=== PATIENT | male | born 1960 | race Caucasian/White ===

== ENCOUNTER 2017-05-26 18:06 | Emergency (ER) | payer MEDICARE ==
[~2017-05-26] VITALS: Ht 177.8 cm; Wt 60.9 kg
[~2017-05-26 18:06] MED LIST: ASPI-146 PO; LEVO.1 PO; MEDR4TAB PO; PERC10TA27 PO; PLAV75TA29 PO
[2017-05-26 18:25] VITALS: BP 94/52; PULSE 98; RESP 20; TEMP 99; O2SAT 95
--- NOTE | 2017-05-26 19:08 | RADRPT ---
EXAM DATE/TIME: 05/26/2017 18:47 [facility] COMPARISON: No previous studies available for comparison. INDICATIONS : Fever. Short of breath. MEDICAL HISTORY : Stroke. Rheumatoid arthritis. Hypothyroidism. COPD. Throat cancer. SURGICAL HISTORY : Carotid endarterectomy. Right carotid stent on 10/24/15. Bilateral cataract surgery. Loop recorder. ENCOUNTER: Initial ACUITY: 2 days PAIN SCORE: 0/10 LOCATION: Bilateral chest FINDINGS: No focal airspace consolidation or effusion. Heart size normal. Remote healed fractures right clavicl e, right ribs. Loop recorder present. CONCLUSION: 1. No acute findings. Dylan Magdaleno MD on May 26, 2017 at 19:04 Board Certified Radiologist. This report was verified electronically.
--- NOTE | 2017-05-27 13:15 | PD ---
Physical Exam Date Seen by Provider: May 26, 2017 Time Seen by Provider: 20:53 Narrative 57 year old male presents to the emergency department for evaluation of fever up to 103 today. He reports having fever for the past 2 days. He reports decreased appetite and vomiting. He denies any chest pain or abdominal pain. Moderate severity. Data Data Last Documented VS Vital Signs Date Time Temp Pulse Resp B/P (MAP) Pulse Ox O2 Delivery O2 Flow Rate FiO2 05/26/17 18:25 99.0 98 20 94/52 (66) 95 Orders Orders Chest, Pa & Lat (05/26/17 ) MDM Supervised Visit with NANCY: No Narrative Course 57 year old male presents to the emergency department for evaluation of fever for 2 days. Patient is initially seen in triage. Work up is initiated. Patient left AMA before he could be moved to a medical bed. Diagnosis Primary Impression: Left against medical advice Patient Instructions: General Instructions Departure Forms: Tests/Procedures Disposition: 07 AGAINST MEDICAL ADVICE Neris Castillo May 27, 2017 13:15
== END 2017-05-26 20:54 | disposition left against medical advice (07) ==
LOC: NED 18:06
DX: R50.9 Fever, unspecified (principal); Z53.21 Procedure and treatment not carried out due to patient leaving prior to being seen by health care provider; J44.9 Chronic obstructive pulmonary disease, unspecified; E03.9 Hypothyroidism, unspecified; M06.9 Rheumatoid arthritis, unspecified
CPT/HCPCS: 71046; 99281; 99283

== ENCOUNTER 2017-06-02 13:47 | Inpatient (IN) | payer MEDICARE ==
[~2017-06-02] VITALS: Ht 177.8 cm; Wt 62.0 kg
[2017-06-02 13:54] VITALS: BP 110/68; PULSE 87; RESP 18; TEMP 99.2; O2SAT 99
[2017-06-02] MEDS ORDERED: SODIUM CHLORIDE 0.9% FLUSH 10 ML FLUSH IVF PRN (14:00)
[2017-06-02] MEDS ORDERED: LORazepam 2 MG/ML VIAL IV PUSH ONE (14:00)
--- NOTE | 2017-06-02 14:04 | PD ---
HPI . Stroke alert Chief Complaint: Neuro Symptoms/ Deficits Time Seen by Provider: 13:51 Travel History International Travel<30 days: No Contact w/Intl Traveler<30days: No Traveled to known affect area: No History of Present Illness HPI This patient presented to us by [facility] as a stroke alert. He was working I believe that the [employer] when he had the acute onset of left-sided weakness. [facility] was called and he was brought to the hospital for further evaluation. Onset of symptoms was 1 PM. It is now 2 PM. The patient denied any associated headache or nausea. He does state that he had blurred vision. The patient is unaware of any exacerbating or relieving factors. Symptoms are mild. PFSH Past Medical History Hx Anticoagulant Therapy: Yes Arthritis: Yes (RHEUMATOID) Asthma: No Autoimmune Disease: Yes (RA) Blood Disorders: No Anxiety: No Depression: No Heart Rhythm Problems: No Cancer: Yes (Thyroid) Cardiovascular Problems: No High Cholesterol: No Chemotherapy: No Chest Pain: No Congestive Heart Failure: No COPD: Yes Cerebrovascular Accident: Yes Diabetes: No Diminished Hearing: No Endocrine: Yes (Thyroid CA) Gastrointestinal Disorders: No GERD: No Glaucoma: No Genitourinary: No Headaches: No Hepatitis: No Hiatal Hernia: No Hypertension: No Immune Disorder: No Kidney Stones: No Musculoskeletal: Yes (RA) Neurologic: Yes (CVA JULY 2015) Psychiatric: No Reproductive: No Respiratory: Yes (COPD) Immunizations Current: No Migraines: No Myocardial Infarction: No Radiation Therapy: No Renal Failure: No Seizures: No Sickle Cell Disease: No Sleep Apnea: No Thyroid Disease: Yes Ulcer: No Past Surgical History Abdominal Surgery: No AICD: No Appendectomy: No Arteriovenous Shunt: No Cardiac Surgery: Yes (current stay carotid stent ) Cholecystectomy: No Ear Surgery: No Endocrine Surgery: Yes (Thyroid) Eye Surgery: Yes (Left and right cataracts) Genitourinary Surgery: No Gynecologic Surgery: No Insulin Pump: No Joint Replacement: No Neurologic Surgery: No Oral Surgery: Yes (tooth removal) Pacemaker: No Thoracic Surgery: No Other Surgery: Yes Social History Alcohol Use: Yes (DAILY) Tobacco Use: No (QUIT) Substance Use: No Allergies-Medications (Allergen,Severity, Reaction): Coded Allergies: Sulfa (Sulfonamide Antibiotics) (Unverified Allergy, Severe, "SKIN PROBLEM ", 06/02/17) *MDRO Multi-Drug Resistant Organism (Verified Adverse Reaction, Unknown, ) MRSA (wound & cath tip) - 2009 MRSA PCR Screens NEGATIVE - 08/07 & 08/10/2015 CLEARED BY INFECTION CONTROL Reported Meds & Prescriptions Reported Meds & Active Scripts Active No Active Prescriptions or Reported Medications Review of Systems Except as stated in HPI: all other systems reviewed are Neg General / Constitutional: No: Fever, Chills Eyes: Positive: Blurred Vision, No: Diploplia HENT: No: Headaches Cardiovascular: No: Chest Pain or Discomfort Respiratory: No: Shortness of Breath Gastrointestinal: No: Nausea, Vomiting Neurologic: Positive: Weakness, Focal Abnormalities, Tremor, Paresthesia, No: Headache, Change in Mentation, Slurred Speech Physical Exam Narrative GENERAL: The patient is very tremulous and is hyperventilating. SKIN: warm/dry. HEAD: Normocephalic. Atraumatic. EYES: Pupils equal and round. No scleral icterus. No injection or drainage. ENT: No nasal bleeding or discharge. Mucous membranes pink and moist. NECK: Trachea midline. Full range of motion without pain.. CARDIOVASCULAR: Regular rate and rhythm. RESPIRATORY: No accessory muscle use. Clear to auscultation. Breath sounds equal bilaterally. GASTROINTESTINAL: Abdomen soft. Nontender. Bowel sounds present. Nondistended. MUSCULOSKELETAL: No obvious deformities. NEUROLOGICAL: A and O 3. Wrinkling of his forehead, closing his eyes, smiling and protruding his tongue are symmetrical. No cranial nerve weakness noted. 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 Pronator drift is negative. Babinski is negative. He is able to hold both legs up off the stretcher equally. PSYCHIATRIC: Appropriate mood and affect; insight and judgment normal. Data Data Last Documented VS Vital Signs Date Time Temp Pulse Resp B/P (MAP) Pulse Ox O2 Delivery O2 Flow Rate FiO2 06/02/17 13:57 (82) Room Air 21 06/02/17 13:54 99.2 87 18 99 Orders Orders Electrocardiogram (06/02/17 13:51) Prothrombin Time / Inr (Pt) (06/02/17 13:51) Act Partial Throm Time (Ptt) (06/02/17 13:51) Complete Blood Count With Diff (06/02/17 13:51) Comprehensive Metabolic Panel (06/02/17 13:51) Drug Screen, Random Urine (06/02/17 13:51) Troponin I (06/02/17 13:51) Ct Brain W/O Iv Contrast(Rout) (06/02/17 13:51) Ecg Monitoring (06/02/17 13:51) Iv Access Insert/Monitor (06/02/17 13:51) Oximetry (06/02/17 13:51) Sodium Chloride 0.9% Flush (Ns Flush) (06/02/17 14:00) Lorazepam Inj (Ativan Inj) (06/02/17 14:00) Alcohol (Ethanol) (06/02/17 13:51) Admit Order (Ed Use Only) (06/02/17 ) [employer] Sales Representative / Telemetry TOPHER.Q8H (06/02/17 15:28) Vital Signs (Adult) Q4H (06/02/17 15:28) Diet Heart Healthy (06/02/17 Dinner) Labs Laboratory Tests Test 06/02/17 14:00 White Blood Count 8.6 TH/MM3 Red Blood Count 5.14 MIL/MM3 Hemoglobin 16.8 GM/DL Hematocrit 48.4 % Mean Corpuscular Volume 94.1 FL Mean Corpuscular Hemoglobin 32.7 PG Mean Corpuscular Hemoglobin Concent 34.8 % Red Cell Distribution Width 14.0 % Platelet Count 368 TH/MM3 Mean Platelet Volume 7.7 FL Neutrophils (%) (Auto) 83.8 % Lymphocytes (%) (Auto) 10.1 % Monocytes (%) (Auto) 5.0 % Eosinophils (%) (Auto) 0.5 % Basophils (%) (Auto) 0.6 % Neutrophils # (Auto) 7.2 TH/MM3 Lymphocytes # (Auto) 0.9 TH/MM3 Monocytes # (Auto) 0.4 TH/MM3 Eosinophils # (Auto) 0.0 TH/MM3 Basophils # (Auto) 0.1 TH/MM3 CBC Comment DIFF FINAL Differential Comment Prothrombin Time 10.2 SEC Prothromb Time International Ratio 1.0 RATIO Activated Partial Thromboplast Time 23.8 SEC Blood Urea Nitrogen 9 MG/DL Creatinine 0.95 MG/DL Random Glucose 88 MG/DL Total Protein 7.1 GM/DL Albumin 3.1 GM/DL Calcium Level 9.1 MG/DL Alkaline Phosphatase 87 U/L Aspartate Amino Transf (AST/SGOT) 23 U/L Alanine Aminotransferase (ALT/SGPT) 40 U/L Total Bilirubin 0.4 MG/DL Sodium Level 139 MEQ/L Potassium Level 4.9 MEQ/L Chloride Level 105 MEQ/L Carbon Dioxide Level 24.7 MEQ/L Anion Gap 9 MEQ/L Estimat Glomerular Filtration Rate 82 ML/MIN Troponin I LESS THAN 0.02 NG/ML Ethyl Alcohol Level LESS THAN 3 MG/DL MDM Medical Screen Exam Complete: Yes Emergency Medical Condition: Yes Medical Record Reviewed: Yes (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 This was treated about 8 years ago with chemotherapy and radiation therapy. Since that time, he has been cancer free. He does continue to smoke.) Differential Diagnosis Differential diagnosis includes but is not limited to TIA, CVA, brain tumor, migraine, anxiety Narrative Course This patient presented to us as a stroke alert. I got an initial NIH stroke score of 0. Perhaps he had a TIA and his symptoms had resolved prior to presentation. Stroke workup is in process. CT: 1. Stable senescent changes with stable posterior right MCA territory infarct. 2. No acute intracranial abnormality. CBC & BMP Diagram 06/02/17 14:00 Total Protein 7.1, Albumin 3.1 L, Calcium Level 9.1, Alkaline Phosphatase 87, Aspartate Amino Transf (AST/SGOT) 23, Alanine Aminotransferase (ALT/SGPT) 40, Total Bilirubin 0.4 trop < 0.02 Stroke Alert NIHSS NIH Stroke Scale Result: 0 NIHSS Time Completed: 13:47 Procedures Interpretation(s) EKG shows a sinus rhythm with no acute ischemic changes Physician Communication Physician Communication Dr. Fernandez Diagnosis Diagnosis: Primary Impression: Left-sided weakness Admitting Physician Requests: Observation Scripts No Active Prescriptions or Reported Meds Condition: Stable Yanet Bocanegra MD Jun 02, 2017 14:03
[2017-06-02 14:14] LABS: AUTOMATED NEUTROPHIL # 7.2 TH/MM3 (1.8-7.7); BASOPHIL # 0.1 TH/MM3 (0-0.2); BASOPHIL % 0.6 % (0.0-2.0); EOSINOPHIL % 0.5 % (0.0-4.0); HEMATOCRIT 48.4 % (39.0-51.0); HEMOGLOBIN 16.8 GM/DL (13.0-17.0); LYMPH % 10.1 % (9.0-44.0); LYMPHOCYTE # 0.9 TH/MM3 (1.0-4.8); MEAN CELL VOLUME 94.1 FL (80.0-100.0); MEAN CORPUSCULAR HEMOGLOBIN 32.7 PG (27.0-34.0); MEAN CORPUSCULAR HGB CONC 34.8 % (32.0-36.0); MEAN PLATELET VOLUME 7.7 FL (7.0-11.0); MONOCYTE # 0.4 TH/MM3 (0-0.9); NEUT % 83.8 % (16.0-70.0); PLATELET COUNT 368 TH/MM3 (150-450); RED BLOOD COUNT 5.14 MIL/MM3 (4.50-5.90); WHITE BLOOD COUNT 8.6 TH/MM3 (4.0-11.0)
[2017-06-02 14:22] LABS: PROTHROMBIN TIME - PATIENT 10.2 SEC (9.8-11.6)
[2017-06-02 14:29] LABS: ALBUMIN 3.1 GM/DL (3.4-5.0); ALT (GPT) 40 U/L (12-78); AST (GOT) 23 U/L (15-37); BICARBONATE 24.7 MEQ/L (21.0-32.0); BLOOD UREA NITROGEN 9 MG/DL (7-18); CALCIUM 9.1 MG/DL (8.5-10.1); CHLORIDE 105 MEQ/L (98-107); CREATININE 0.95 MG/DL (0.60-1.30); GLOMERULAR FILTRATION RATE 82 ML/MIN (>89); GLUCOSE,RANDOM 88 MG/DL (74-106); SODIUM (NA) 139 MEQ/L (136-145)
[2017-06-02 14:33] LABS: ALKALINE PHOSPHATASE 87 U/L (45-117); TOTAL BILIRUBIN ADULT 0.4 MG/DL (0.2-1.0); TOTAL PROTEIN 7.1 GM/DL (6.4-8.2); TROPONIN I LESS THAN 0.02 NG/ML (0.02-0.05)
--- NOTE | 2017-06-02 14:59 | RADRPT ---
EXAM DATE/TIME: 06/02/2017 14:36 [facility] COMPARISON: CT BRAIN W/O CONTRAST, August 08, 2015, 22:40. INDICATIONS : Left side weakness RADIATION DOSE: 35.64 CTDIvol (mGy) MEDICAL HISTORY : Cerebrovascular disease. Chronic obstructive pulmonary disease. Arthritis.Thyroid cancer SURGICAL HISTORY : Thyroid cancer ENCOUNTER: Initial ACUITY: 1 day PAIN SCALE: 0/10 LOCATION: cranial TECHNIQUE: Multiple contiguous axial images were obtained of the head. Using automated exposure control and adj ustment of the mA and/or kV according to patient size, radiation dose was kept as low as reasonably a chievable to obtain optimal diagnostic quality images. DICOM format image data is available electro nically for review and comparison. FINDINGS: CEREBRUM: Redemonstration of encephalomalacia in the right posterior parietal mid convexities. Moderate diffuse cerebral atrophy. The ventricles are normal for degree of atrophy. No evidence of midline shift, ma ss lesion, hemorrhage or acute infarction. No extra-axial fluid collections are seen. POSTERIOR FOSSA: The cerebellum and brainstem are intact. The 4th ventricle is midline. The cerebellopontine angle i s unremarkable. EXTRACRANIAL: The visualized portion of the orbits is intact. SKULL: The calvaria is intact. No evidence of skull fracture. CONCLUSION: 1. Stable senescent changes with stable posterior right MCA territory infarct. 2. No acute intracranial abnormality. Ezio Mora MD on June 02, 2017 at 14:54 Board Certified Radiologist. This report was verified electronically.
[2017-06-02] MEDS ORDERED: GLUCAGON 1 MG/ML VIAL OTHER PRN ×2 (15:30→20:15)
[2017-06-02] MEDS ORDERED: DEXTROSE 50% IN WATER 50 ML VIAL(D50) IV PUSH PRN ×2 (15:30→20:15)
[2017-06-02] MEDS ORDERED: SODIUM CHLORIDE 0.9% FLUSH 10 ML FLUSH IV FLUSH PRN ×2 (15:30→20:15)
--- NOTE | 2017-06-02 16:57 | RADRPT ---
EXAM DATE/TIME: 06/02/2017 16:15 [facility] COMPARISON: MRA BRAIN W/O CONTRAST, August 05, 2015, 8:59. INDICATIONS : CVA. Bilateral hand weakness and left foot weakness. MEDICAL HISTORY : Rheumatoid arthritis. Throat cancer. SURGICAL HISTORY : Carotid stent. Medtronic loop recoder. ENCOUNTER: Initial ACUITY: 1 day PAIN SCORE: 4/10 LOCATION: Bilateral cranial Please note a normal MRA of the brain does not entirely exclude the possibility of a small aneurysm, nor the possibility of distal intracranial vessel disease. TECHNIQUE: 3D time of flight MRA was performed. Source images, multiplanar STS MIP, and 3D volume MIP reconstru ctions were reviewed. FINDINGS: There is excellent visualization of the major intracranial arteries out to the second-order branch ve ssels. There is no evidence for aneurysm, vessel truncation or stenosis, and no evidence for vascula r malformation. Patent posterior communicating arteries are noted bilaterally. CONCLUSION: No acute disease. Patent bilateral posterior communicating arteries. Jeffery sDouza MD on June 02, 2017 at 16:53 Board Certified Radiologist. This report was verified electronically.
--- NOTE | 2017-06-02 17:03 | RADRPT ---
EXAM DATE/TIME: 06/02/2017 16:15 [facility] COMPARISON: MRI BRAIN W/O CONTRAST, August 09, 2015, 11:13. INDICATIONS : CVA. Bilateral hand weakness and left foot weakness. MEDICAL HISTORY : Rheumatoid arthritis. Throat cancer. SURGICAL HISTORY : Carotid stent. Medtronic loop recorder. ENCOUNTER: Initial ACUITY: 1 day PAIN SCORE: 4/10 LOCATION: Bilateral cranial TECHNIQUE: Multiplanar, multisequence MRI of the brain was performed without contrast. FINDINGS: There is a tiny focus of hyperdensity within the right parietal periventricular white matter on the d iffusion weighted images suggestive of possible acute/subacute lacunar infarct. Clinical correlation is recommended. Old right MCA infarct with encephalomalacia involving right parietal and temporal lob es is noted. No acute hemorrhage, midline shift or extra-axial fluid collections are noted. There is an old lacunar infarct within the left cerebellar hemisphere. The ventricles, sulci and cisterns are stable. CONCLUSION: Tiny focus of hyperdensity within the right parietal periventricular white matter on the diffusion we ighted images suggestive of possible acute/subacute lacunar infarct. Clinical correlation is recommen ded. Jeffery Dsouza MD on June 02, 2017 at 16:55 Board Certified Radiologist. This report was verified electronically.
[2017-06-02 17:04] VITALS: BP 86/61; PULSE 63; RESP 18; TEMP 96.9; O2SAT 98
[2017-06-02 17:07] VITALS: BP 98/62
--- NOTE | 2017-06-02 18:06 | RADRPT ---
EXAM DATE/TIME: 06/02/2017 17:03 [facility] COMPARISON: US CAROTID ARTERIES, December 07, 2015, 15:03. INDICATIONS : Transient ischemic attack. MEDICAL HISTORY : Stroke. Rheumatoid arthritis. Carcinoma, thyroid. Thyroid disease. Anticoagulant therapy. COPD. SURGICAL HISTORY : Carotid endarterectomy. Thyroidectomy. Bilateral cataract surgery. Left collarbone surgery. ENCOUNTER: Subsequent ACUITY: 1 day PAIN SCORE: 0/10 LOCATION: Bilateral neck PEAK SYSTOLIC VELOCITIES (cm/sec): ICA/CCA RATIO: Right: 1.4 Left: 1.7 ICA: Right: 95.1 Left: 137.7 CCA: Right: 65.9 Left: 82.7 ECA: Right: UTO Left: UTO VERTEBRAL: Right: 70.9 antegrade Left: 54.8 retrograde Elevated flow velocities and ICA/CCA ratios have been found to correlate with increased degrees of vessel stenosis, calculated as percentage of diameter relative to a normal segment of distal ICA/CCA FINDINGS: RIGHT CAROTID: Carotid stent is again noted. No significant stenosis is visualized. The waveforms are within normal limits. LEFT CAROTID: Carotid stent is again noted. No significant stenosis is visualized. The waveforms are within normal limits. VERTEBRAL ARTERIES: Again there is retrograde flow within the left vertebral artery suggesting possible subclavian steal syndrome related to proximal high-grade stenosis of the left subclavian artery. Antegrade flow is not ed within the right vertebral artery. MISCELLANEOUS: None. CONCLUSION: 1. Retrograde flow within the left vertebral artery suggesting possible subclavian steal syndrome rel ated to proximal high-grade stenosis of the left subclavian artery. 2. No significant internal carotid artery stenosis. Jeffery Dsouza MD on June 02, 2017 at 18:00 Board Certified Radiologist. This report was verified electronically.
--- NOTE | 2017-06-02 19:30 | HHI.HP ---
HPI Service [facility] Primary Care Physician Unknown Admission Diagnosis TIA Diagnoses: Travel History International Travel<30 Days: No Contact w/Intl Traveler <30 Da: No Traveled to Known Affected Are: No History of Present Illness was feeling numb on his whole left side while he was working at [employer] [facility] was called right away got to er within 15min per patient reports symptoms were "pretty much under control" by the time he got here ER MD reports symptoms were improving as well brought in as stroke alert by ems was on blood thinners a year ago he states he stopped it himself because he thinks it was not doing anything for him thinks it was plavix he sees dr quevedo and last time he saw him he was given plavix prescription again, but did not fill it because he cant afford it have had shortness of breath at night time when he gets up to urinate- and usually goes away when gets back to bed chronic smoker- copd hx Review of Systems Except as stated in HPI: all other systems reviewed are Neg Past Family Social History Past Medical History copd pad- s/p bilateral cartoid artery stents CVA in 2016-no residual weakness squamous cell Cancer of left tonsil 2008- s/p chemo radiation hypothyroidism due to cancer treatment above - 100mcg rheumatoid arthritis- takes methotrexate and medrol Past Surgical History carotid artery stents Reported Medications medrol 6 mg po daily methotrexate 15mg on Fridays synthroid 100mcg po daily water pill used to have cholesterol medicine- but that was not doing any good blood thinners- asa, plavix- not doing good- so stopped it himself pharmacy in [facility] Allergies: Coded Allergies: Sulfa (Sulfonamide Antibiotics) (Unverified Allergy, Severe, "SKIN PROBLEM ", 06/02/17) *MDRO Multi-Drug Resistant Organism (Verified Adverse Reaction, Unknown, ) MRSA (wound & cath tip) - 2009 MRSA PCR Screens NEGATIVE - 08/07 & 08/10/2015 CLEARED BY INFECTION CONTROL Family History none that he knows of Social History smokes about 1 pack a day now , for past >30yrs drinks etoh about 6 packs a day - last drink was yesterday no drugs just occasional marijuana Physical Exam Vital Signs Vital Signs Date Time Temp Pulse Resp B/P (MAP) Pulse Ox O2 Delivery O2 Flow Rate FiO2 06/02/17 17:07 98/62 (74) 06/02/17 17:04 96.9 63 18 86/61 (69) 98 06/02/17 16:22 (82) 21 06/02/17 13:57 (82) Room Air 21 06/02/17 13:54 99.2 87 18 110/68 (82) 99 Room Air 21 06/02/17 13:52 88 Physical Exam GENERAL: This is a well-nourished, well-developed patient, in no apparent distress. SKIN: No rashes, ecchymoses or lesions. Cool and dry. HEAD: Atraumatic. Normocephalic. No temporal or scalp tenderness. EYES: Pupils equal round and reactive. Extraocular motions intact. No scleral icterus. No injection or drainage. ENT: Nose without bleeding, purulent drainage or septal hematoma. Airway patent. NECK: Trachea midline. No JVD . Supple, nontender, no meningeal signs. CARDIOVASCULAR: Regular rate and rhythm without murmurs, gallops, or rubs. RESPIRATORY: Clear to auscultation. Breath sounds equal bilaterally. No wheezes , rales, or rhonchi. GASTROINTESTINAL: Abdomen soft, non-tender, nondistended. No guarding. MUSCULOSKELETAL: Extremities without clubbing, cyanosis, or edema. No calf tenderness. NEUROLOGICAL: Awake and alert. Cranial nerves II through XII intact. Five out of 5 muscle strength in all muscle groups. Normal speech. Laboratory Laboratory Tests Test 06/02/17 14:00 White Blood Count 8.6 Red Blood Count 5.14 Hemoglobin 16.8 Hematocrit 48.4 Mean Corpuscular Volume 94.1 Mean Corpuscular Hemoglobin 32.7 Mean Corpuscular Hemoglobin Concent 34.8 Red Cell Distribution Width 14.0 Platelet Count 368 Mean Platelet Volume 7.7 Neutrophils (%) (Auto) 83.8 Lymphocytes (%) (Auto) 10.1 Monocytes (%) (Auto) 5.0 Eosinophils (%) (Auto) 0.5 Basophils (%) (Auto) 0.6 Neutrophils # (Auto) 7.2 Lymphocytes # (Auto) 0.9 Monocytes # (Auto) 0.4 Eosinophils # (Auto) 0.0 Basophils # (Auto) 0.1 CBC Comment DIFF FINAL Differential Comment Prothrombin Time 10.2 Prothromb Time International Ratio 1.0 Activated Partial Thromboplast Time 23.8 Blood Urea Nitrogen 9 Creatinine 0.95 Random Glucose 88 Total Protein 7.1 Albumin 3.1 Calcium Level 9.1 Alkaline Phosphatase 87 Aspartate Amino Transf (AST/SGOT) 23 Alanine Aminotransferase (ALT/SGPT) 40 Total Bilirubin 0.4 Sodium Level 139 Potassium Level 4.9 Chloride Level 105 Carbon Dioxide Level 24.7 Anion Gap 9 Estimat Glomerular Filtration Rate 82 Hemoglobin A1c 5.0 Troponin I LESS THAN 0.02 Ethyl Alcohol Level LESS THAN 3 Result Diagram: 06/02/17 1400 06/02/17 1400 Es VTE Risk Assessment Es VTE Risk Assessment: Mod/High Risk (score >= 2) Caprini Risk Assessment Model Point Value = 1 Point Value = 2 Point Value = 3 Point Value = 5 Age 41-60 Minor surgery BMI > 25 kg/m2 Swollen legs Varicose veins or History of unexplained or recurrent spontaneous Oral contraceptives or hormone replacement Sepsis (< 1 month) Serious lung disease, including pneumonia (< 1 month) Abnormal pulmonary function Acute myocardial infarction Congestive heart failure (< 1 month) History of inflammatory bowel disease Medical patient at bed rest Age 61-74 Arthroscopic surgery Major open surgery (> 45 min) Laparoscopic surgery (> 45 min) Malignancy Confined to bed (> 72 hours) Immobilizing plaster cast Central venous access Age >= 75 History of VTE Family history of VTE Factor V Leiden Prothrombin [id number] Lupus anticoagulant Anticardiolipin antibodies Elevated serum homocysteine Heparin-induced thrombocytopenia Other congenital or acquired thrombophilia Stroke (< 1 month) Elective arthroplasty Hip, pelvis, or leg fracture Acute spinal cord injury (< 1 month) Prophylaxis Regimen Total Risk Factor Score Risk Level Prophylaxis Regimen 0-1 Low Early ambulation 2 Moderate Order ONE of the following: *Sequential Compression Device (SCD) *Heparin 5000 units SQ BID 3-4 Higher Order ONE of the following medications: *Heparin 5000 units SQ TID *Enoxaparin/Lovenox 40 mg SQ daily (WT < 150 kg, CrCl > 30 mL/min) *Enoxaparin/Lovenox 30 mg SQ daily (WT < 150 kg, CrCl > 10-29 mL/min) *Enoxaparin/Lovenox 30 mg SQ BID (WT < 150 kg, CrCl > 30 mL/min) AND/OR *Sequential Compression Device (SCD) 5 or more Highest Order ONE of the following medications: *Heparin 5000 units SQ TID (Preferred with Epidurals) *Enoxaparin/Lovenox 40 mg SQ daily (WT < 150 kg, CrCl > 30 mL/min) *Enoxaparin/Lovenox 30 mg SQ daily (WT < 150 kg, CrCl > 10-29 mL/min) *Enoxaparin/Lovenox 30 mg SQ BID (WT < 150 kg, CrCl > 30 mL/min) AND *Sequential Compression Device (SCD) Assessment and Plan Assessment and Plan Impression: tia medications non compliance - not taking asa/plavix/folic acid rheumatoid arthritis on mtx at home- not taking folic acid- sees DR Baker on lazara mirza and kasandra flores- wireless sales expert copd Plan: neurochecks permissive htn asa and plavix mri of brain and mra neuro consult carotid US echo ciwa dvt prophylaxis scd Discussed Condition With patient, ER MD, nursing staff Bonita Fernandez MD Jun 02, 2017 19:30
[2017-06-02] MEDS ORDERED: LORazepam 2 MG TAB PO PRN (19:45)
[2017-06-02] MEDS ORDERED: FLUMAZENIL 0.5 MG/5 ML VIAL IV PUSH PRN (19:45)
[2017-06-02] MEDS ORDERED: LORazepam 1 MG TAB PO PRN (19:45)
[2017-06-02] MEDS ORDERED: LORazepam 2 MG/ML VIAL IV PUSH PRN ×4 (19:45)
[2017-06-02] MEDS ORDERED: MEDR4PAK PO ×2 (19:51→19:58)
[2017-06-02] MEDS ORDERED: LEVO.1 PO (19:51)
[2017-06-02] MEDS ORDERED: PERC10TA27 PO (19:51)
[2017-06-02] MEDS ORDERED: CLOPIDOGREL 75 MG TAB PO ONE (20:00)
[2017-06-02] MEDS ORDERED: ASPIRIN 81 MG CHEW TAB CHEW ONE (20:00)
--- NOTE | 2017-06-02 20:15 | EKG ---
Date Performed: 06/02/2017 Time Performed: 14:00:19 PTAGE: 57 years EKG: Sinus rhythm NORMAL ECG No significant change from prior electrocardiogram. DOCTOR: All Elias Interpretating Date/Time 06/02/2017 20:13:58
[2017-06-02 20:33] VITALS: BP 109/56; PULSE 78; RESP 18; TEMP 98.7; O2SAT 96
[2017-06-02 20:46] VITALS: PULSE 72
[2017-06-02] MEDS: SODIUM CHLORIDE 0.9% FLUSH 10 ML FLUSH IV FLUSH SCH ×2 (21:00→21:28)
[2017-06-02] MEDS: ASPIRIN 325 MG TAB PO SCH (21:27)
[2017-06-02] MEDS: CLOPIDOGREL 75 MG TAB PO SCH (21:28)
[2017-06-02] MEDS: SODIUM CHLOR 0.9% 1000 ML INJ 1,000 ML IV SCH (21:30)
[2017-06-02] MEDS: INSULIN ASPART SUPPLEMENTAL SCALE SQ SCH (21:38)
[2017-06-03] VITALS (12 sets, daily range): BP systolic 102–130; BP diastolic 57–64; PULSE 52–66; RESP 18–22; TEMP 97.4–97.9; O2SAT 94–100
[2017-06-03 07:01] LABS: CHOLESTEROL/ HDL RATIO 3.03 RATIO; HDL CHOLESTEROL 40.9 MG/DL (40.0-60.0)
[2017-06-03] MEDS: INSULIN ASPART SUPPLEMENTAL SCALE SQ SCH ×4 (08:00→21:45)
--- NOTE | 2017-06-03 08:19 | MB ---
cc: Tai Melendez MD, PhD DATE: 06/02/2017 REASON FOR CONSULTATION: Stroke. HISTORY OF PRESENT ILLNESS: Mr. Barrientos is a very pleasant 57-year-old man who developed around 01:00 today sudden onset of weakness, clumsiness of the left arm with numbness, also numbness in the left leg and left face. Speech was normal. He came to the ER initially as a Stroke-Alert, but his symptoms basically resolved and, therefore, he was felt not to be an acute Stroke-Alert. He feels basically back to normal at the present time. PAST MEDICAL HISTORY: He has a history of stroke in 2016, with no residual symptoms, history of bilateral carotid stents, hypothyroidism, rheumatic arthritis. MEDICATIONS: He was supposed to be on Plavix at home, but has not been taking it, states that his insurance did not cover this. NEUROLOGICAL PHYSICAL EXAMINATION: VITAL SIGNS: Blood pressure is 98/62, pulse 63, respirations 18, temperature 96.9 degrees. NEUROLOGIC: Higher cortical functions are normal. Cranial nerves intact. Motor exam, he has normal strength and tone of all groups. Fine motor skills normal. There is no drift. Reflexes are 2+ symmetric. IMAGING: MRI of the brain shows a very small hyperdensity in the right parietal area, consistent with acute stroke. MRA brain is normal. Carotid ultrasound, retrograde flow in the left vertebral suggesting subclavian steal related to proximal high grade stenosis of the left subclavian artery. LABORATORY DATA: The white count 8600, hemoglobin 16.8, hematocrit 48.4%, platelet count 368,000. Sodium is 139, potassium 4.9, chloride 105, CO2 25, BUN is 9, creatinine 0.95, GFR is 82, glucose 88, AST 23, ALT is 40. Tox screen, alcohol is negative. PT 10.2, INR 1, APTT 23.8. ECHOCARDIOGRAM: The EKG, normal sinus rhythm. IMPRESSION: A small right hemisphere stroke, which improved spontaneously, history of bilateral carotid stents, possible subclavian steal phenomenon as well. RECOMMENDATIONS: Recommend starting the patient on both Plavix as well as aspirin therapy. We will obtain a CT angiogram of the neck to further evaluate the vertebral arteries, as well as the carotids and subclavian artery. Recommend echocardiogram. He may require transesophageal echo. Given his relatively young age, we will check labs for hypercoagulable state as well. Tai Melendez MD, PhD JOANN/DINA , 08:13 PM , 09:06 PM
[2017-06-03] MEDS ORDERED: IOHEXOL 350 MG/ML 10 ML VIAL (for RAD DIAG) IVCONTRAST ONE (08:50)
[2017-06-03] MEDS: ASPIRIN 325 MG TAB PO SCH (08:55)
[2017-06-03] MEDS: CLOPIDOGREL 75 MG TAB PO SCH (08:55)
[2017-06-03] MEDS: FOLIC ACID 1 MG TAB PO SCH (08:55)
[2017-06-03] MEDS: THIAMINE HCL 100 MG TAB PO SCH (08:55)
[2017-06-03] MEDS: SODIUM CHLORIDE 0.9% FLUSH 10 ML FLUSH IV FLUSH SCH ×4 (08:56→21:45)
[2017-06-03] MEDS: SODIUM CHLOR 0.9% 1000 ML INJ 1,000 ML IV SCH (09:05)
[2017-06-03] MEDS ORDERED: oxyCODONE/ACETAMINOPHEN 10 MG/325 MG TAB PO PRN (09:15)
[2017-06-03] MEDS ORDERED: ACETAMINOPHEN 325 MG TAB PO PRN (09:15)
[2017-06-03] MEDS: methylPREDNISolone 4 MG TAB PO SCH (09:15)
[2017-06-03] MEDS: LEVOTHYROXINE SODIUM 100 MCG TAB PO SCH (09:15)
--- NOTE | 2017-06-03 09:23 | RADRPT ---
EXAM DATE/TIME: 06/03/2017 08:42 [facility] COMPARISON: MRI BRAIN W/O CONTRAST, June 02, 2017, 16:15. CTA BRAIN W 3D RECON, August 06, 2015, 13:12. INDICATIONS : Cerebrovascular accident. IV CONTRAST: 65 cc Omnipaque 350 (iohexol) IV ; Cumulative dose for multiple exams. RADIATION DOSE: 9.23 CTDIvol (mGy) ; Combined studies MEDICAL HISTORY : Cerebrovascular disease. Chronic obstructive pulmonary disease. Carcinoma, thyroid. SURGICAL HISTORY : Carotid stent. ENCOUNTER: Initial ACUITY: 2 days PAIN SCALE: 0/10 LOCATION: cranial TECHNIQUE: Volumetric scanning was performed using a multi-row detector CT scanner. The data was post processed with a variety of visualization algorithms including full volume maximum intensity projection, multi -planar sliding thin slab reformation, curved planar reformation, and surface rendering techniques. Using automated exposure control and adjustment of the mA and/or kV according to patient size, radiat ion dose was kept as low as reasonably achievable to obtain optimal diagnostic quality images. DICO M format image data is available electronically for review and comparison. FINDINGS: There is excellent visualization of the major intracranial arteries out to the second-order branch ve ssels. There is no evidence for aneurysm, vessel truncation or stenosis, and no evidence for vascula r malformation. Patent bilateral posterior communicating arteries are noted. CONCLUSION: 1. No significant stenosis, occlusion or aneurysm. 2. Patent bilateral posterior communicating arteries. Jeffery Dsouza MD on June 03, 2017 at 9:17 Board Certified Radiologist. This report was verified electronically.
[2017-06-03] MEDS ORDERED: PILL SPLITTER OTHER PRN (09:30)
--- NOTE | 2017-06-03 09:30 | HHI.PR ---
Subjective Remarks Follow up for CVA. The patient reports feeling back to his baseline. He denies any further left sided numbness or weakness. Denies any speech difficulties. Denies any other medical complaints including no headache, visual changes, lightheadedness, dizziness, chest pain, palpitations, shortness of breath, or abdominal complaints. Objective Vitals Vital Signs Date Time Temp Pulse Resp B/P (MAP) Pulse Ox O2 Delivery O2 Flow Rate FiO2 06/03/17 08:00 97.5 59 22 106/64 (78) 99 06/03/17 04:24 60 06/03/17 03:55 97.9 57 18 110/58 (75) 100 06/03/17 00:33 52 06/03/17 00:13 60 18 130/60 (83) 97 06/02/17 20:46 72 06/02/17 20:33 98.7 78 18 109/56 (73) 96 06/02/17 17:07 98/62 (74) 06/02/17 17:04 96.9 63 18 86/61 (69) 98 06/02/17 16:22 (82) 21 06/02/17 13:57 (82) Room Air 21 06/02/17 13:54 99.2 87 18 110/68 (82) 99 Room Air 21 06/02/17 13:52 88 I/O 06/02/17 06/02/17 06/02/17 06/03/17 06/03/17 06/03/17 07:00 15:00 23:00 07:00 15:00 23:00 # Voids 1 Result Diagram: 06/02/17 1400 06/02/17 1400 Imaging Last Impressions Head CT 06/02/17 1351 Signed Impressions: Service Date/Time: Friday, June 02, 2017 14:36 - CONCLUSION: 1. Stable senescent changes with stable posterior right MCA territory infarct. 2. No acute intracranial abnormality. Ezio Mora MD Neck CTA 06/02/17 0000 Signed Impressions: Service Date/Time: Saturday, June 03, 2017 08:42 - CONCLUSION: 1. Occluded left subclavian origin with vertebral reconstitution. 2. Interval bilateral carotid artery stent placement. Eccentric soft plaque/mural thrombus extends from the distal common carotid arteries to the proximal portion of the stents bilaterally. There is resultant 20-30%% stenosis on the right and less than 20% % stenosis on the left. 3. Mild to moderate distal IntraStent stenosis bilaterally. There is up to 30-40%% stenosis on the right and nearly 30%% stenosis on the left. 4. Widely patent bilateral vertebral arteries. Ezio Mora MD Head Magnetic Resonance Angiography 06/02/17 0000 Signed Impressions: Service Date/Time: Friday, June 02, 2017 16:15 - CONCLUSION: No acute disease. Patent bilateral posterior communicating arteries. Jeffery Dsouza MD Head CTA 06/02/17 0000 Signed Impressions: Service Date/Time: Saturday, June 03, 2017 08:42 - CONCLUSION: 1. No significant stenosis, occlusion or aneurysm. 2. Patent bilateral posterior communicating arteries. Jeffery Dsouza MD Carotid Artery Ultrasound 06/02/17 0000 Signed Impressions: Service Date/Time: Friday, June 02, 2017 17:03 - CONCLUSION: 1. Retrograde flow within the left vertebral artery suggesting possible subclavian steal syndrome related to proximal high-grade stenosis of the left subclavian artery. 2. No significant internal carotid artery stenosis. Jeffery Dsouza MD Brain MRI 06/02/17 0000 Signed Impressions: Service Date/Time: Friday, June 02, 2017 16:15 - CONCLUSION: Tiny focus of hyperdensity within the right parietal periventricular white matter on the diffusion weighted images suggestive of possible acute/subacute lacunar infarct. Clinical correlation is recommended. Jeffery Dsouza MD Objective Remarks GENERAL: Thin middle-aged male patient in [facility]. SKIN: Warm and dry. No rash. HEENT: Normocephalic. Atraumatic. Mild bitemporal wasting. Pupils equal and round. Mucous membranes pink and moist. NECK: Supple. Trachea midline. CARDIOVASCULAR: Regular rate and rhythm. No murmur appreciated. RESPIRATORY: No accessory muscle use. Clear to auscultation. Breath sounds equal bilaterally. GASTROINTESTINAL: Abdomen soft, non-tender, nondistended. Normoactive bowel sounds x4. MUSCULOSKELETAL: No obvious deformities. Extremities without clubbing, cyanosis , or edema. NEUROLOGICAL: Awake and alert. No obvious cranial nerve deficits. Motor grossly within normal limits. 5/5 muscle strength in bilateral upper and lower extremities. Normal speech. No facial droop/lid lag/tongue deviation. PSYCHIATRIC: Appropriate mood and affect; insight and judgment normal. Medications and IVs Current Medications Medications (Trade) Dose Ordered Sig/Tu Route Start Time Stop Time Status Last Admin (NS Flush) 2 ml BID IV FLUSH 06/02/17 21:00 06/03/17 08:56 (NS Flush) 2 ml UNSCH PRN IV FLUSH 06/02/17 15:30 (Folate) 1 mg DAILY PO 06/03/17 09:00 06/03/17 08:55 (Vitamin B1) 100 mg DAILY PO 06/03/17 09:00 06/03/17 08:55 (Romazicon Inj) 0.2 mg Q1M PRN IV PUSH 06/02/17 19:45 (Ativan) 1 mg Q4H PRN PO 06/02/17 19:45 (Ativan Inj) 1 mg Q4H PRN IV PUSH 06/02/17 19:45 (Ativan) 2 mg Q2H PRN PO 06/02/17 19:45 (Ativan Inj) 2 mg Q2H PRN IV PUSH 06/02/17 19:45 (Ativan Inj) 2 mg Q1H PRN IV PUSH 06/02/17 19:45 (Ativan Inj) 2 mg Q15M PRN IV PUSH 06/02/17 19:45 (NS Flush) 2 ml BID IV FLUSH 06/02/17 21:00 06/03/17 08:56 (NS Flush) 2 ml UNSCH PRN IV FLUSH 06/02/17 20:15 Sodium Chloride 1,000 ml @ 70 mls/hr [id number] IV 06/02/17 20:13 06/03/17 09:05 (Aspirin) 325 mg DAILY PO 06/02/17 20:15 06/03/17 08:55 (Plavix) 75 mg DAILY PO 06/02/17 20:15 06/03/17 08:55 (NovoLOG SUPPLEMENTAL SCALE) 1 ACHS SQ 06/02/17 21:00 (D50w (Vial) Inj) 50 ml UNSCH PRN IV PUSH 06/02/17 20:15 (Glucagon Inj) 1 mg UNSCH PRN OTHER 06/02/17 20:15 (Synthroid) 100 mcg DAILY@0600 PO 06/03/17 09:15 06/03/17 09:15 (Medrol) 6 mg DAILY PO 06/03/17 09:15 06/03/17 09:15 (Tylenol) 650 mg Q6H PRN PO 06/03/17 09:15 (Percocet 10-325 Mg) 1 tab Q6H PRN PO 06/03/17 09:15 (Pill Splitter) 1 ea UNSCH PRN OTHER 06/03/17 09:30 A/P Assessment and Plan 57-year-old male with history of CVA in 2016, PAD, bilateral carotid stents, 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 -Brain MRI reviewed, shows tiny focus of hyperdensity within the right parietal periventricular white matter suggestive of acute or subacute lacunar infarct -Started on aspirin/Plavix -Give IVF hydration -HgbA1c 5.0 and Lipid panel wnl -PT/OT consultation -Stroke navigator consulted -Neuro checks, NIHSS, monitor on telemetry -Patient passed bedside swallow evaluation, diet advanced -Check echocardiogram -Carotid ultrasound showed high-grade stenosis LEFT subclavian stenosis, see below -Neurology consulted, appreciate recommendations Left Subclavian Stenosis with hx of PAD and s/p b/l carotid stents. Subclavian stenosis incidental finding on carotid U/S as part of workup for stroke as above , however stroke on the right side therefore stenosis likely noncontributory -Neck CTA ordered and pending -Continue anticoagulation with aspirin/plavix -Consult vascular surgery for further evaluation COPD: chronic, does not appear to be in exacerbation -duonebs prn Rheumatoid Arthritis: chronic -continue patient's methylprednisolone -outpatient f/up Hypothyroidism: chronic -continue patient's synthroid Moderate Protein Calorie Malnutrition: secondary to hx of Throat Cancer, patient has followed up with ENT Dr. Anaya recently and outpatient PET, no reoccurrence of cancer -patient drinks Ensure with meals at home, will continue -patient reports he is finally maintaining weight and no longer losing weight -outpatient f/up DVT Prophylaxis: teds/SCDs, on aspirin/plavix Yasmine Noel PA-C Jun 03, 2017 9:30 am
--- NOTE | 2017-06-03 10:53 | RADRPT ---
EXAM DATE/TIME: 06/03/2017 08:42 [facility] COMPARISON: CTA CAROTID ARTERIES W 3D RECON, August 06, 2015, 13:12. INDICATIONS : Cerebrovascular accident. Subclavian steal, history of bilateral carotid stents. IV CONTRAST: 65 cc Omnipaque 350 (iohexol) IV ; Cumulative dose for multiple exams. RADIATION DOSE: 9.23 CTDIvol (mGy) ; Combined studies MEDICAL HISTORY : Chronic obstructive pulmonary disease. Cerebrovascular disease. Carcinoma, thyroid. SURGICAL HISTORY : Carotid stent. ENCOUNTER: Initial ACUITY: 2 days PAIN SCALE: 0/10 LOCATION: Bilateral neck Elevated flow velocities and ICA/CCA ratios have been found to correlate with increased degrees of vessel stenosis, calculated as percentage of diameter relative to a normal segment of distal ICA/CCA. TECHNIQUE: Volumetric scanning was performed using a multirow detector CT scanner. The data was post processed with a variety of visualization algorithms including full-volume maximum intensity projection, multip lanar sliding thin-slab reformation, curved-planar reformation, and surface-rendering techniques. Us ing automated exposure control and adjustment of the mA and/or kV according to patient size, radiatio n dose was kept as low as reasonably achievable to obtain optimal diagnostic quality images. DICOM f ormat image data is available electronically for review and comparison. FINDINGS: AORTIC ARCH: Standard 3 vessel arch anatomy. Redemonstration of occlusion of the left subclavian origin with verte bral reconstitution. RIGHT CAROTID: Interval carotid stent placement. There is moderate eccentric soft plaque/mural thrombus extending fr om the distal common carotid artery to the proximal portion of the stent with resultant approximate 2 0-30% stenosis. There is also mild to moderate distal IntraStent stenosis with resultant approximatel y 30-40% stenosis.. Remainder of the internal carotid artery is patent. LEFT CAROTID: Interval carotid stent placement. Mild eccentric soft plaque/mural thrombus extending from the distal common carotid artery to the proximal portion of the stent with resultant less than 20% stenosis. Mi ld distal IntraStent stenosis with resultant approximately 30% stenosis. Remainder of the internal ca rotid arteries patent. VERTEBRALS: The vertebral arteries have a symmetric diameter. No stenotic lesions are seen. Nonvascular findings: Visualized lung apices demonstrate no mild centrilobular and moderate paraseptal emphysema. Thyroid a ppears unremarkable by CT. No gross cervical mass or adenopathy. CONCLUSION: 1. Occluded left subclavian origin with vertebral reconstitution. 2. Interval bilateral carotid artery stent placement. Eccentric soft plaque/mural thrombus extends fr om the distal common carotid arteries to the proximal portion of the stents bilaterally. There is res ultant 20-30% stenosis on the right and less than 20% stenosis on the left. 3. Mild to moderate distal IntraStent stenosis bilaterally. There is up to 30-40% stenosis on the rig ht and nearly 30% stenosis on the left. 4. Widely patent bilateral vertebral arteries. Ezio Mora MD on June 03, 2017 at 10:23 Board Certified Radiologist. This report was verified electronically.
--- NOTE | 2017-06-03 12:06 | PD.VS.CON ---
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 Pt reported around 1300 yesterday afternoon he developed RIGHT hand tingling and LEFT sided weakness with slurred speech that resolved shortly after arriving to the ED. 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 Hypothyroidism Rheumatoid Arthritis Past Surgical History Bilateral Carotid Artery Stents Social History 35 year hx of smoking cigarettes daily 1/2 PPD Reported a few beers a week - Socially Smokes marijuana daily Family History Denied (Guillermina Dinh) Home Medications Reported Medications Methylprednisolone Dosepak (Medrol Dosepak) 4 Mg Dspk, 6 MG PO DAILY, #1 DSPK 0 Refills Per Pharmacist direction 06/02/17 Oxycodone-Acetaminophen (Percocet) 10-325 mg Tab, 1 TAB PO Q4H Y for PAIN, TAB 0 Refills 06/02/17 Levothyroxine (Synthroid) 100 Mcg Tab, 100 MCG PO DAILY for Thyroid, #30 TAB 0 Refills 06/02/17 Discontinued Reported Medications Methylprednisolone Dosepak (Medrol Dosepak) 4 Mg Dspk, 4 MG PO DAILY, #1 DSPK 0 Refills Per Pharmacist direction 06/02/17 Coded Allergies: Sulfa (Sulfonamide Antibiotics) (Unverified Allergy, Severe, "SKIN PROBLEM ", 06/02/17) *MDRO Multi-Drug Resistant Organism (Verified Adverse Reaction, Unknown, ) MRSA (wound & cath tip) - 2009 MRSA PCR Screens NEGATIVE - 08/07 & 08/10/2015 CLEARED BY INFECTION CONTROL Review of Systems Constitutional: DENIES: Fever, Chills Endocrine: COMPLAINS OF: Heat/cold intolerance Eyes: DENIES: Vision loss Musculoskeletal: COMPLAINS OF: Joint pain (Pt denied hand pain, numbness or tingling ) Neurologic: DENIES: Speech Problems (Guillermina Dinh) Physical Exam Vitals/I&O Date Time Temp Pulse Resp B/P (MAP) Pulse Ox O2 Delivery O2 Flow Rate FiO2 06/03/17 08:00 97.5 59 22 106/64 (78) 99 06/03/17 04:24 60 06/03/17 03:55 97.9 57 18 110/58 (75) 100 06/03/17 00:33 52 06/03/17 00:13 60 18 130/60 (83) 97 06/02/17 20:46 72 06/02/17 20:33 98.7 78 18 109/56 (73) 96 06/02/17 17:07 98/62 (74) 06/02/17 17:04 96.9 63 18 86/61 (69) 98 06/02/17 16:22 (82) 21 06/02/17 13:57 (82) Room Air 21 06/02/17 13:54 99.2 87 18 110/68 (82) 99 Room Air 21 06/02/17 13:52 88 Neuro: A&OX3 GCS 15 HEENT: CRISTIANE Neck: NO JVD distention No carotid bruits present Heart: RRR +S1,S2 Lungs: CTA Abdomen: S/NT Vascular: Palpable equal R/L radial pulses UE warm w/ motor intact Pt w/o numbness/tingling (Guillermina Dinh) Laboratory Tests Test 06/02/17 14:00 06/03/17 05:27 06/03/17 05:37 White Blood Count 8.6 Red Blood Count 5.14 Hemoglobin 16.8 Hematocrit 48.4 Mean Corpuscular Volume 94.1 Mean Corpuscular Hemoglobin 32.7 Mean Corpuscular Hemoglobin Concent 34.8 Red Cell Distribution Width 14.0 Platelet Count 368 Mean Platelet Volume 7.7 Neutrophils (%) (Auto) 83.8 Lymphocytes (%) (Auto) 10.1 Monocytes (%) (Auto) 5.0 Eosinophils (%) (Auto) 0.5 Basophils (%) (Auto) 0.6 Neutrophils # (Auto) 7.2 Lymphocytes # (Auto) 0.9 Monocytes # (Auto) 0.4 Eosinophils # (Auto) 0.0 Basophils # (Auto) 0.1 CBC Comment DIFF FINAL Differential Comment Prothrombin Time 10.2 Prothromb Time International Ratio 1.0 Activated Partial Thromboplast Time 23.8 Blood Urea Nitrogen 9 Creatinine 0.95 Random Glucose 88 Total Protein 7.1 Albumin 3.1 Calcium Level 9.1 Alkaline Phosphatase 87 Aspartate Amino Transf (AST/SGOT) 23 Alanine Aminotransferase (ALT/SGPT) 40 Total Bilirubin 0.4 Sodium Level 139 Potassium Level 4.9 Chloride Level 105 Carbon Dioxide Level 24.7 Anion Gap 9 Estimat Glomerular Filtration Rate 82 Hemoglobin A1c 5.0 Troponin I LESS THAN 0.02 Ethyl Alcohol Level LESS THAN 3 Erythrocyte Sedimentation Rate 17 Triglycerides Level 83 Cholesterol Level 124 LDL Cholesterol 67 HDL Cholesterol 40.9 Cholesterol/HDL Ratio 3.03 Last [address] 06/02/17 1351 Signed Impressions: Service Date/Time: Friday, June 02, 2017 14:36 - CONCLUSION: 1. Stable senescent changes with stable posterior right MCA territory infarct. 2. No acute intracranial abnormality. Ezio Mora MD Neck CTA 06/02/17 0000 Signed Impressions: Service Date/Time: Saturday, June 03, 2017 08:42 - CONCLUSION: 1. Occluded left subclavian origin with vertebral reconstitution. 2. Interval bilateral carotid artery stent placement. Eccentric soft plaque/mural thrombus extends from the distal common carotid arteries to the proximal portion of the stents bilaterally. There is resultant 20-30%% stenosis on the right and less than 20% % stenosis on the left. 3. Mild to moderate distal IntraStent stenosis bilaterally. There is up to 30-40%% stenosis on the right and nearly 30%% stenosis on the left. 4. Widely patent bilateral vertebral arteries. Ezio Mora MD Head Magnetic Resonance Angiography 06/02/17 0000 Signed Impressions: Service Date/Time: Friday, June 02, 2017 16:15 - CONCLUSION: No acute disease. Patent bilateral posterior communicating arteries. Jeffery Dsouza MD Head CTA 06/02/17 0000 Signed Impressions: Service Date/Time: Saturday, June 03, 2017 08:42 - CONCLUSION: 1. No significant stenosis, occlusion or aneurysm. 2. Patent bilateral posterior communicating arteries. Jeffery Dsouza MD Carotid Artery Ultrasound 06/02/17 0000 Signed Impressions: Service Date/Time: Friday, June 02, 2017 17:03 - CONCLUSION: 1. Retrograde flow within the left vertebral artery suggesting possible subclavian steal syndrome related to proximal high-grade stenosis of the left subclavian artery. 2. No significant internal carotid artery stenosis. Jeffery Dsouza MD Brain MRI 06/02/17 0000 Signed Impressions: Service Date/Time: Friday, June 02, 2017 16:15 - CONCLUSION: Tiny focus of hyperdensity within the right parietal periventricular white matter on the diffusion weighted images suggestive of possible acute/subacute lacunar infarct. Clinical correlation is recommended. Jeffery Dsouza MD (Guillermina Dinh) Assessment and Plan Assessment: (1) Subclavian artery disease (2) Hemiparesthesia Status: Acute Plan 57/M who arrives to the ED with sudden onset Left sided weakness and slurred speech. Pt w/ resolved unilateral weakness and speech deficit. Recent U/S suggestive of LEFT subclavian artery stenosis Pt asymptomatic w/ palpable distal pulses and reports no hx of near syncope or syncopal episodes Plan CTA NECK ordered Will review to determine next plan of action Recommend no B/P readings from pt's LEFT upper extremity Guillermina Dinh NP [facility] [phone] (Guillermina Dinh) Plan Pt without neurological deficit at present. CTA shows B DAVID and some in-stent stenosis but unlikely HD significant and certainly less atheroembolic risk that [place] carotid stenosis. Needs medical management for carotid disease (ASA, statin). L SCA occlusion which patient knows about. No symptoms. Only valid BP is RIGHT arm as mentioned above. Can w/u with binitrotoluene operator who placed stents. Jeffery Briones MD [facility] thermal molder [facility] [phone] (Jeffery Briones MD) Guillermina Dinh Jun 03, 2017 12:06 Jeffery Briones MD Jun 03, 2017 13:21
[2017-06-03] MEDS ORDERED: RESP: ALBUTEROL 2.5 MG/IPRATROPIUM 0.5 MG NEB (PRN) NEB (13:00)
--- NOTE | 2017-06-03 22:59 | HHI.PR ---
Review/Management Diagnosis right parietal cva--stable h/o bilateral carotid stents--CTA is stable occluded left subclavian a. Plan continue plavix and asa follow up echo--if no embolic source ok to dc from neuro standpoint tomorrow if ok with primary service and follow up with me out patient 2-3 weeks. outpatient consult with cardiology to consider RYAN and loop recorder Diagnosis/Plan: Subjective Subjective Comments No acute events reported No further weakness or clumsiness left Active Medications Current Medications Medications (Trade) Dose Ordered Sig/Tu Route Start Time Stop Time Status Last Admin (NS Flush) 2 ml BID IV FLUSH 06/02/17 21:00 06/03/17 20:50 (NS Flush) 2 ml UNSCH PRN IV FLUSH 06/02/17 15:30 (Folate) 1 mg DAILY PO 06/03/17 09:00 06/03/17 08:55 (Vitamin B1) 100 mg DAILY PO 06/03/17 09:00 06/03/17 08:55 (Romazicon Inj) 0.2 mg Q1M PRN IV PUSH 06/02/17 19:45 (Ativan) 1 mg Q4H PRN PO 06/02/17 19:45 (Ativan Inj) 1 mg Q4H PRN IV PUSH 06/02/17 19:45 (Ativan) 2 mg Q2H PRN PO 06/02/17 19:45 (Ativan Inj) 2 mg Q2H PRN IV PUSH 06/02/17 19:45 (Ativan Inj) 2 mg Q1H PRN IV PUSH 06/02/17 19:45 (Ativan Inj) 2 mg Q15M PRN IV PUSH 06/02/17 19:45 (NS Flush) 2 ml BID IV FLUSH 06/02/17 21:00 06/03/17 21:45 (NS Flush) 2 ml UNSCH PRN IV FLUSH 06/02/17 20:15 Sodium Chloride 1,000 ml @ 70 mls/hr [id number] IV 06/02/17 20:13 06/03/17 09:05 (Aspirin) 325 mg DAILY PO 06/02/17 20:15 06/03/17 08:55 (Plavix) 75 mg DAILY PO 06/02/17 20:15 06/03/17 08:55 (NovoLOG SUPPLEMENTAL SCALE) 1 ACHS SQ 06/02/17 21:00 (D50w (Vial) Inj) 50 ml UNSCH PRN IV PUSH 06/02/17 20:15 (Glucagon Inj) 1 mg UNSCH PRN OTHER 06/02/17 20:15 (Synthroid) 100 mcg DAILY@0600 PO 06/03/17 09:15 06/03/17 09:15 (Medrol) 6 mg DAILY PO 06/03/17 09:15 06/03/17 09:15 (Tylenol) 650 mg Q6H PRN PO 06/03/17 09:15 (Percocet 10-325 Mg) 1 tab Q6H PRN PO 06/03/17 09:15 (Pill Splitter) 1 ea UNSCH PRN OTHER 06/03/17 09:30 (Duoneb Neb) 1 ampule Q4HR NEB PRN NEB 06/03/17 13:00 Allergies Allergies Coded Allergies Sulfa (Sulfonamide Antibiotics) (Unverified Allergy, Severe, "SKIN PROBLEM", ) *MDRO Multi-Drug Resistant Organism (Verified Adverse Reaction, Unknown, ) Exam I&O / VS 06/03/17 06/03/17 06/04/17 15:00 23:00 07:00 # Voids 1 2 Vital Signs Date Time Temp Pulse Resp B/P (MAP) Pulse Ox O2 Delivery O2 Flow Rate FiO2 06/03/17 21:29 53 06/03/17 21:22 98 06/03/17 20:38 97.8 66 18 120/63 (82) 94 06/03/17 16:00 97.4 55 20 109/62 (78) 98 06/03/17 12:30 62 06/03/17 11:50 97.6 58 20 102/57 (72) 97 06/03/17 08:00 97.5 59 22 106/64 (78) 99 06/03/17 04:24 60 06/03/17 03:55 97.9 57 18 110/58 (75) 100 06/03/17 00:33 52 06/03/17 00:13 60 18 130/60 (83) 97 Respiratory: Lungs CTA, Non-labored respirations, BS equal Cardiology: Normal rate, Regular Rhythm Musculoskeletal: Tenderness, Swelling Exam Comments alert, speech normal CN normal MOTOR 5./5 BUE Objective Radiology Results CTA--occluded left subclavian bialteral carotids without significant stenosis CTA brain--normal Micro and Labs Laboratory Tests Test 06/03/17 05:27 06/03/17 05:37 Erythrocyte Sedimentation Rate 17 Hemoglobin A1c 5.0 Triglycerides Level 83 Cholesterol Level 124 LDL Cholesterol 67 HDL Cholesterol 40.9 Cholesterol/HDL Ratio 3.03 Diagnostic Tests echo--pending Tai Melendez MD PhD Jun 03, 2017 22:59
[2017-06-04] VITALS (10 sets, daily range): BP systolic 81–127; BP diastolic 58–71; PULSE 53–68; RESP 16–20; TEMP 97.5–97.8; O2SAT 95–98
[2017-06-04] MEDS: SODIUM CHLOR 0.9% 1000 ML INJ 1,000 ML IV SCH ×2 (01:17→15:07)
[2017-06-04] MEDS: LEVOTHYROXINE SODIUM 100 MCG TAB PO SCH (05:26)
[2017-06-04] MEDS: INSULIN ASPART SUPPLEMENTAL SCALE SQ SCH ×4 (08:00→20:58)
[2017-06-04] MEDS: FOLIC ACID 1 MG TAB PO SCH (08:17)
[2017-06-04] MEDS: CLOPIDOGREL 75 MG TAB PO SCH (08:17)
[2017-06-04] MEDS: THIAMINE HCL 100 MG TAB PO SCH (08:17)
[2017-06-04] MEDS: ASPIRIN 325 MG TAB PO SCH (08:17)
[2017-06-04] MEDS: SODIUM CHLORIDE 0.9% FLUSH 10 ML FLUSH IV FLUSH SCH ×4 (08:17→20:58)
[2017-06-04] MEDS: methylPREDNISolone 4 MG TAB PO SCH (08:18)
--- NOTE | 2017-06-04 08:27 | ECHRPT ---
Indication: TIA CONCLUSIONS Mildly dilated left ventricle. Wall thickness is normal. The left ventricular systolic function is cmkfyric-vi-[id number] reduced with an estimated ejection fra ction in the range of 35-40%. Global hypokinesis. Trace mitral valve regurgitation. Slight aortic leaflet sclerosis. There is mild tricuspid valve regurgitation. The estimated pulmonary arterial pressure is 26 mmHg. BP: 102 / 57 HR: 58 Rhythm: Sinus MEASUREMENTS (Male / Female) Normal Values Technical Quality:Fair 2D ECHO LV Diastolic Diameter PLAX 6.0 cm 4.2 - 5.9 / 3.9 - 5.3 cm LV Systolic Diameter PLAX 4.9 cm IVS Diastolic Thickness 0.7 cm 0.6 - 1.0 / 0.6 - 0.9 cm LVPW Diastolic Thickness 0.8 cm 0.6 - 1.0 / 0.6 - 0.9 cm LV Relative Wall Thickness 0.2 RV Internal Dim ED PLAX 2.9 cm LVOT Diameter 2.3 cm LA Systolic Diameter LX 3.4 cm 3.0 - 4.0 / 2.7 - 3.8 cm M-MODE Aortic Root Diameter MM 2.8 cm LA Systolic Diameter MM 3.3 cm LA Ao Ratio MM 1.2 AV Cusp Separation MM 2.3 cm DOPPLER AV Peak Velocity 138.0 cm/s AV Peak Gradient 7.6 mmHg LVOT Peak Velocity 53.2 cm/s LVOT Peak Gradient 1.1 mmHg AV Area Cont Eq pk 1.6 cm MV Area PHT 3.7 cm Mitral E Point Velocity 51.6 cm/s Mitral A Point Velocity 32.8 cm/s Mitral E to A Ratio 1.6 LV E' Lateral Velocity 12.0 cm/s Mitral E to LV E' Lateral Ratio 4.3 LV E' Septal Velocity 8.4 cm/s Mitral E to LV E' Septal Ratio 6.2 TR Peak Velocity 201.0 cm/s TR Peak Gradient 16.2 mmHg Right Atrial Pressure 10.0 mmHg Pulmonary Artery Systolic Pressu 26.2 mmHg Right Ventricular Systolic Press 26.2 mmHg FINDINGS LEFT VENTRICLE Mildly dilated left ventricle. Wall thickness is normal. The left ventricular systolic function is snwymdqz-xl-skjgdyi reduced with an estimated ejection fra ction in the range of 35-40%. Global hypokinesis. RIGHT VENTRICLE Normal right ventricular size and systolic function. LEFT ATRIUM The left atrial size is normal. RIGHT ATRIUM The right atrial size is normal. ATRIAL SEPTUM Normal atrial septal thickness without atrial level shunting by limited color doppler interrogation. AORTA The aortic root and proximal ascending aorta are normal in size on limited imaging. MITRAL VALVE Mild thickening of the mitral valve leaflets. Trace mitral valve regurgitation. AORTIC VALVE Trileaflet aortic valve. Slight aortic leaflet sclerosis. No aortic valve stenosis or regurgitation . TRICUSPID VALVE Structurally normal tricuspid valve. There is mild tricuspid valve regurgitation. The estimated pulmonary arterial pressure is 26 mmHg. PULMONARY VALVE Mild pulmonary valve regurgitation. VESSELS The inferior vena cava is normal in size. PERICARDIUM No pericardial effusion. Shane Cooley MD (Electronically Signed) Final Date:04 June 2017 08:26
--- NOTE | 2017-06-04 10:26 | HHI.DCPOC ---
Discharge Care Plan Diagnosis: (1) CVA (cerebrovascular accident) (2) Hemiparesthesia (3) Impaired mobility and activities of daily living Your Health Problems Are: Difficulty with ADL Difficulty with Speech Goals to Promote Your Health * To prevent worsening of your condition and complications * To maintain your health at the optimal level Directions to Meet Your Goals Take your medications as prescribed Follow your dietary instruction Follow activity as directed Keep your appointments as scheduled Take your immunizations and boosters as scheduled If your symptoms worsen call your PCP, if no PCP go to Urgent Care Center or Emergency Room Smoking is Dangerous to Your Health. Avoid second hand smoke Call the 24-hour hour crisis hotline for domestic abuse at Rocio Mckeon [facility] Jun 04, 2017 10:26
[2017-06-04] MEDS ORDERED: PLAV75TA29 PO (10:32)
[2017-06-04] MEDS ORDERED: ASA325 PO (10:32)
--- NOTE | 2017-06-04 11:17 | HHI.PR ---
Subjective Remarks Follow-up visit CVA. Patient seen and examined today. Reports he is doing okay. Denies left-sided numbness or weakness. Denies headaches, changes in vision, changes in bowel or bladder. Denies chest pain, palpitations, dizziness. Denies abdominal pain, cramping, nausea, vomiting, diarrhea, dysuria. Reports occasional shortness of breath with exertion. States he is unable to exhale when he exerts effort with activities. Objective Vitals Vital Signs Date Time Temp Pulse Resp B/P (MAP) Pulse Ox O2 Delivery O2 Flow Rate FiO2 06/04/17 08:05 97.5 61 16 95/65 (75) 95 06/04/17 08:00 65 06/04/17 04:25 97.8 58 20 114/71 (85) 97 06/04/17 00:07 97.8 64 18 127/70 (89) 97 06/04/17 00:02 53 06/03/17 21:29 53 06/03/17 21:28 61 06/03/17 21:22 98 06/03/17 20:38 97.8 66 18 120/63 (82) 94 06/03/17 16:00 97.4 55 20 109/62 (78) 98 06/03/17 12:30 62 06/03/17 11:50 97.6 58 20 102/57 (72) 97 I/O 06/03/17 06/03/17 06/03/17 06/04/17 06/04/17 06/04/17 07:00 15:00 23:00 07:00 15:00 23:00 # Voids 1 2 Result Diagram: 06/02/17 1400 06/02/17 1400 Imaging Last Impressions Head CT 06/02/17 1351 Signed Impressions: Service Date/Time: Friday, June 02, 2017 14:36 - CONCLUSION: 1. Stable senescent changes with stable posterior right MCA territory infarct. 2. No acute intracranial abnormality. Ezio Mora MD Neck CTA 06/02/17 0000 Signed Impressions: Service Date/Time: Saturday, June 03, 2017 08:42 - CONCLUSION: 1. Occluded left subclavian origin with vertebral reconstitution. 2. Interval bilateral carotid artery stent placement. Eccentric soft plaque/mural thrombus extends from the distal common carotid arteries to the proximal portion of the stents bilaterally. There is resultant 20-30%% stenosis on the right and less than 20% % stenosis on the left. 3. Mild to moderate distal IntraStent stenosis bilaterally. There is up to 30-40%% stenosis on the right and nearly 30%% stenosis on the left. 4. Widely patent bilateral vertebral arteries. Ezio Mora MD Head Magnetic Resonance Angiography 06/02/17 0000 Signed Impressions: Service Date/Time: Friday, June 02, 2017 16:15 - CONCLUSION: No acute disease. Patent bilateral posterior communicating arteries. Jeffery Dsouza MD Head CTA 06/02/17 0000 Signed Impressions: Service Date/Time: Saturday, June 03, 2017 08:42 - CONCLUSION: 1. No significant stenosis, occlusion or aneurysm. 2. Patent bilateral posterior communicating arteries. Jeffery Dsouza MD Carotid Artery Ultrasound 06/02/17 0000 Signed Impressions: Service Date/Time: Friday, June 02, 2017 17:03 - CONCLUSION: 1. Retrograde flow within the left vertebral artery suggesting possible subclavian steal syndrome related to proximal high-grade stenosis of the left subclavian artery. 2. No significant internal carotid artery stenosis. Jeffery Dsouza MD Brain MRI 06/02/17 0000 Signed Impressions: Service Date/Time: Friday, June 02, 2017 16:15 - CONCLUSION: Tiny focus of hyperdensity within the right parietal periventricular white matter on the diffusion weighted images suggestive of possible acute/subacute lacunar infarct. Clinical correlation is recommended. Jeffery Dsouza MD Objective Remarks GENERAL: This is a thin appearing, well-developed patient, in no apparent distress. SKIN: Warm and dry HEENT: Normocephalic. Pupils equal round and reactive. Nose without bleeding. Airway patent. Oral mucosa dry NECK: Trachea midline. CARDIOVASCULAR: Regular rate and rhythm without murmurs, gallops, or rubs. RESPIRATORY: Clear to auscultation. Breath sounds equal bilaterally. No wheezes , rales, or rhonchi. GASTROINTESTINAL: Abdomen soft, non-tender, nondistended. Bowel Sounds normoactive x4. MUSCULOSKELETAL: Extremities without clubbing, cyanosis, or edema. NEUROLOGICAL: Awake and alert. Oriented to time, place, person. No focal neuro deficit. Moves all extremities. Normal speech. 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 -Brain MRI reviewed, shows tiny focus of hyperdensity within the right parietal periventricular white matter suggestive of acute or subacute lacunar infarct -Started on aspirin/Plavix -Give IVF hydration -HgbA1c 5.0 and Lipid panel wnl -PT/OT consultation -Stroke navigator consulted -Neuro checks, NIHSS, monitor on telemetry -Patient passed bedside swallow evaluation, diet advanced -Carotid ultrasound showed high-grade stenosis LEFT subclavian stenosis, see below -Neurology consulted, appreciate recommendations -Echocardiogram showed decreased LV function EF of 35-40%. -Consult cardiology for further evaluation recommendations Left Subclavian Stenosis with hx of PAD and s/p b/l carotid stents. Subclavian stenosis incidental finding on carotid U/S as part of workup for stroke as above , however stroke on the right side therefore stenosis likely noncontributory -Neck CTA ordered and pending -Continue anticoagulation with aspirin/plavix -Consult vascular surgery for further evaluation COPD: chronic, does not appear to be in exacerbation -duonebs prn Rheumatoid Arthritis: chronic -continue patient's methylprednisolone -outpatient f/up Hypothyroidism: chronic -continue patient's synthroid Moderate Protein Calorie Malnutrition: secondary to hx of Throat Cancer, patient has followed up with ENT Dr. Anaya recently and outpatient PET, no reoccurrence of cancer -patient drinks Ensure with meals at home, will continue -patient reports he is finally maintaining weight and no longer losing weight -outpatient f/up DVT Prophylaxis: teds/SCDs, on aspirin/plavix Discharge Planning Plan to DC home possibly tomorrow pending cardiology consult Rocio Mckeon Jun 04, 2017 11:17
[2017-06-05 00:13] VITALS: BP 106/61; PULSE 53; RESP 16; TEMP 98; O2SAT 99
[2017-06-05] MEDS: SODIUM CHLOR 0.9% 1000 ML INJ 1,000 ML IV SCH (00:44)
[2017-06-05 04:00] VITALS: BP 135/77; PULSE 56; PULSE 57; RESP 17; TEMP 98.5; O2SAT 98
[2017-06-05] MEDS: LEVOTHYROXINE SODIUM 100 MCG TAB PO SCH (05:56)
[2017-06-05 07:23] VITALS: PULSE 61
[2017-06-05 07:52] VITALS: BP 110/74; PULSE 64; RESP 20; TEMP 97.6; O2SAT 97
[2017-06-05] MEDS: INSULIN ASPART SUPPLEMENTAL SCALE SQ SCH ×2 (08:00→12:00)
[2017-06-05] MEDS: SODIUM CHLORIDE 0.9% FLUSH 10 ML FLUSH IV FLUSH SCH ×2 (08:16)
[2017-06-05] MEDS: ASPIRIN 325 MG TAB PO SCH (08:17)
[2017-06-05] MEDS: FOLIC ACID 1 MG TAB PO SCH (08:17)
[2017-06-05] MEDS: THIAMINE HCL 100 MG TAB PO SCH (08:19)
[2017-06-05] MEDS: methylPREDNISolone 4 MG TAB PO SCH (08:19)
[2017-06-05] MEDS: CLOPIDOGREL 75 MG TAB PO SCH (08:21)
--- NOTE | 2017-06-05 08:58 | HHI.PR ---
Subjective Remarks Follow-up visit CVA. Patient seen and examined today. at the bedside. Reports he is feeling a lot better. Denies any upper extremity numbness tingling, weakness. States he has been ambulating the hallway without any difficulty. Denies pain and discomfort. Denies SOB/ dyspnea. Denies chest pain, palpitations, headaches, dizziness. Denies fevers, chills, n/v/d. Denies dysuria. Objective Vitals Vital Signs Date Time Temp Pulse Resp B/P (MAP) Pulse Ox O2 Delivery O2 Flow Rate FiO2 06/05/17 07:52 97.6 64 20 110/74 (86) 97 06/05/17 04:00 57 06/05/17 04:00 98.5 56 17 135/77 (96) 98 06/05/17 00:13 98.0 53 16 106/61 (76) 99 06/04/17 20:28 97.8 55 17 107/58 (74) 96 06/04/17 16:10 116/60 (78) 06/04/17 15:11 97.8 63 16 81/58 (66) 97 06/04/17 15:00 68 06/04/17 11:16 97.7 61 16 101/58 (72) 98 I/O 06/04/17 06/04/17 06/04/17 06/05/17 06/05/17 06/05/17 07:00 15:00 23:00 07:00 15:00 23:00 Intake Total 2550 ml 720 ml Output Total 900 ml Balance 1650 ml 720 ml Intake Oral 750 ml 720 ml IV Total 1800 ml Output Urine Total 900 ml # Voids 2 # Bowel Movements 1 Result Diagram: 06/02/17 1400 06/02/17 1400 Imaging Last Impressions Head CT 06/02/17 1351 Signed Impressions: Service Date/Time: Friday, June 02, 2017 14:36 - CONCLUSION: 1. Stable senescent changes with stable posterior right MCA territory infarct. 2. No acute intracranial abnormality. Ezio Mora MD Neck CTA 06/02/17 0000 Signed Impressions: Service Date/Time: Saturday, June 03, 2017 08:42 - CONCLUSION: 1. Occluded left subclavian origin with vertebral reconstitution. 2. Interval bilateral carotid artery stent placement. Eccentric soft plaque/mural thrombus extends from the distal common carotid arteries to the proximal portion of the stents bilaterally. There is resultant 20-30%% stenosis on the right and less than 20% % stenosis on the left. 3. Mild to moderate distal IntraStent stenosis bilaterally. There is up to 30-40%% stenosis on the right and nearly 30%% stenosis on the left. 4. Widely patent bilateral vertebral arteries. Ezio Mora MD Head Magnetic Resonance Angiography 06/02/17 Signed Impressions: Service Date/Time: Friday, June 02, 2017 16:15 - CONCLUSION: No acute disease. Patent bilateral posterior communicating arteries. Jeffery Dsouza MD Head CTA 06/02/17 Signed Impressions: Service Date/Time: Saturday, June 03, 2017 08:42 - CONCLUSION: 1. No significant stenosis, occlusion or aneurysm. 2. Patent bilateral posterior communicating arteries. Jeffery Dsouza MD Carotid Artery Ultrasound 06/02/17 Signed Impressions: Service Date/Time: Friday, June 02, 2017 17:03 - CONCLUSION: 1. Retrograde flow within the left vertebral artery suggesting possible subclavian steal syndrome related to proximal high-grade stenosis of the left subclavian artery. 2. No significant internal carotid artery stenosis. Jeffery Dsouza MD Brain MRI 06/02/17 0000 Signed Impressions: Service Date/Time: Friday, June 02, 2017 16:15 - CONCLUSION: Tiny focus of hyperdensity within the right parietal periventricular white matter on the diffusion weighted images suggestive of possible acute/subacute lacunar infarct. Clinical correlation is recommended. Jeffery Dsouza MD Objective Remarks GENERAL: This is a thin appearing, well-developed patient, in no apparent distress. SKIN: Warm and dry HEENT: Normocephalic. Pupils equal round and reactive. Nose without bleeding. Airway patent. Oral mucosa dry NECK: Trachea midline. CARDIOVASCULAR: Regular rate and rhythm without murmurs, gallops, or rubs. RESPIRATORY: Clear to auscultation. Breath sounds equal bilaterally. No wheezes , rales, or rhonchi. GASTROINTESTINAL: Abdomen soft, non-tender, nondistended. Bowel Sounds normoactive x4. MUSCULOSKELETAL: Extremities without clubbing, cyanosis, or edema. NEUROLOGICAL: Awake and alert. Oriented to time, place, person. No focal neuro deficit. Moves all extremities. Normal speech. 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 -Brain MRI reviewed, shows tiny focus of hyperdensity within the right parietal periventricular white matter suggestive of acute or subacute lacunar infarct -Started on aspirin/Plavix -Give IVF hydration -HgbA1c 5.0 and Lipid panel wnl -PT/OT consultation -Stroke navigator consulted -Neuro checks, NIHSS, monitor on telemetry -Patient passed bedside swallow evaluation, diet advanced -Carotid ultrasound showed high-grade stenosis LEFT subclavian stenosis, see below -Neurology consulted, appreciate recommendations -recommends Plavix, aspirin. Cardiology to consider RYAN and loop recorder outpatient -Echocardiogram showed decreased LV function EF of 35-40%. -We will refer patient to Dr. Burch in the outpatient for follow up Left Subclavian Stenosis with hx of PAD and s/p b/l carotid stents. Subclavian stenosis incidental finding on carotid U/S as part of workup for stroke as above , however stroke on the right side therefore stenosis likely noncontributory -Neck CTA showed occluded left subclavian origin with vertebral reconstitution. Interval bilateral carotid artery stent placement. Eccentric soft plaque/mural thrombus extends from the distal common carotid arteries to the proximal portion of stents bilaterally. There is resultant 20-30% stenosis on the right and less than 20% stenosis on the left. Mild to moderate distal IntraStent stenosis bilaterally. There is up to 30-40% stenosis on the right and nearly 30% stenosis on the left. Widely patent bilateral vertebral arteries. Patient states that Dr. camarena is the one who placed bilateral stents and needs to be followed. -Continue anticoagulation with aspirin/plavix -Consult vascular surgery for further evaluation. Recommends medical management ASA, statin, no BP to the left arm. Recommends a follow-up with research attorney who placed his stents. COPD: chronic, does not appear to be in exacerbation -duonebs prn Rheumatoid Arthritis: chronic -continue patient's methylprednisolone -outpatient f/up Hypothyroidism: chronic -continue patient's synthroid Moderate Protein Calorie Malnutrition: secondary to hx of Throat Cancer, patient has followed up with ENT Dr. Anaya recently and outpatient PET, no reoccurrence of cancer -patient drinks Ensure with meals at home, will continue -patient reports he is finally maintaining weight and no longer losing weight -outpatient f/up DVT Prophylaxis: teds/SCDs, on aspirin/plavix Discharge Planning Plan to DC home today, has not been seen by cardiology yet but will arrange placement with Dr. burch's office. Will DC if we have arrangements with his office. Rocio Mckeon Jun 05, 2017 08:58
--- NOTE | 2017-06-05 10:26 | HHI.DS ---
Discharge Summary Admission Date Jun 03, 2017 at 13:06 Discharge Date: Jun 05, 2017 Admitting Diagnosis TIA (1) CVA (cerebrovascular accident) ICD Code: I63.9 - Cerebral infarction, unspecified Procedures None Brief History - From Admission was feeling numb on his whole left side while he was working at [employer] was called right away got to er within 15min per patient reports symptoms were "pretty much under control" by the time he got here ER reports symptoms were improving as well brought in as stroke alert by ems was on blood thinners a year ago he states he stopped it himself because he thinks it was not doing anything for him thinks it was plavix he sees dr quevedo and last time he saw him he was given plavix prescription again, but did not fill it because he cant afford it have had shortness of breath at night time when he gets up to urinate- and usually goes away when gets back to bed chronic smoker- copd hx CBC/BMP: 06/02/17 1400 06/02/17 1400 Significant Findings Laboratory Tests Test 06/02/17 14:00 06/03/17 05:27 06/03/17 05:37 Neutrophils (%) (Auto) 83.8 % (16.0-70.0) Lymphocytes # (Auto) 0.9 TH/MM3 (1.0-4.8) Activated Partial Thromboplast Time 23.8 SEC (24.3-30.1) Albumin 3.1 GM/DL (3.4-5.0) Estimat Glomerular Filtration Rate 82 ML/MIN (>89) Troponin I LESS THAN 0.02 NG/ML Imaging Last Impressions Head CT 06/02/17 1351 Signed Impressions: Service Date/Time: Friday, June 02, 2017 14:36 - CONCLUSION: 1. Stable senescent changes with stable posterior right MCA territory infarct. 2. No acute intracranial abnormality. Ezio Mora MD Neck CTA 06/02/17 0000 Signed Impressions: Service Date/Time: Saturday, June 03, 2017 08:42 - CONCLUSION: 1. Occluded left subclavian origin with vertebral reconstitution. 2. Interval bilateral carotid artery stent placement. Eccentric soft plaque/mural thrombus extends from the distal common carotid arteries to the proximal portion of the stents bilaterally. There is resultant 20-30%% stenosis on the right and less than 20% % stenosis on the left. 3. Mild to moderate distal IntraStent stenosis bilaterally. There is up to 30-40%% stenosis on the right and nearly 30%% stenosis on the left. 4. Widely patent bilateral vertebral arteries. Ezio Mora MD Head Magnetic Resonance Angiography 06/02/17 0000 Signed Impressions: Service Date/Time: Friday, June 02, 2017 16:15 - CONCLUSION: No acute disease. Patent bilateral posterior communicating arteries. Jeffery Dsouza MD Head CTA 06/02/17 0000 Signed Impressions: Service Date/Time: Saturday, June 03, 2017 08:42 - CONCLUSION: 1. No significant stenosis, occlusion or aneurysm. 2. Patent bilateral posterior communicating arteries. Jeffery Dsouza MD Carotid Artery Ultrasound 06/02/17 0000 Signed Impressions: Service Date/Time: Friday, June 02, 2017 17:03 - CONCLUSION: 1. Retrograde flow within the left vertebral artery suggesting possible subclavian steal syndrome related to proximal high-grade stenosis of the left subclavian artery. 2. No significant internal carotid artery stenosis. Jeffery Dsouza MD Brain MRI 06/02/17 0000 Signed Impressions: Service Date/Time: Friday, June 02, 2017 16:15 - CONCLUSION: Tiny focus of hyperdensity within the right parietal periventricular white matter on the diffusion weighted images suggestive of possible acute/subacute lacunar infarct. Clinical correlation is recommended. Jeffery Dsouza MD PE at Discharge GENERAL: This is a thin appearing, well-developed patient, in no apparent distress. SKIN: Warm and dry HEENT: Normocephalic. Pupils equal round and reactive. Nose without bleeding. Airway patent. Oral mucosa dry NECK: Trachea midline. CARDIOVASCULAR: Regular rate and rhythm without murmurs, gallops, or rubs. RESPIRATORY: Clear to auscultation. Breath sounds equal bilaterally. No wheezes , rales, or rhonchi. GASTROINTESTINAL: Abdomen soft, non-tender, nondistended. Bowel Sounds normoactive x4. MUSCULOSKELETAL: Extremities without clubbing, cyanosis, or edema. NEUROLOGICAL: Awake and alert. Oriented to time, place, person. No focal neuro deficit. Moves all extremities. Normal speech. Pt update on day of discharge Follow-up visit CVA. Patient seen and examined today. at the bedside. Reports he is feeling a lot better. Denies any upper extremity numbness tingling, weakness. States he has been ambulating the hallway without any difficulty. Denies pain and discomfort. Denies SOB/ dyspnea. Denies chest pain, palpitations, headaches, dizziness. Denies fevers, chills, n/v/d. Denies dysuria. 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 Brain MRI shows tiny focus of hyper density within the right parietal periventricular white matter suggestive of acute or subacute lacunar infarct. Patient was diagnosed with acute lacunar CVA presented as a stroke alert with left-sided numbness and slurred speech were in the symptoms resolved within an hour after onset. Patient was started on aspirin/Plavix. He was given IV fluids for hydration. PT and OT consultation was done and recommends no PT OT at home. Patient neurochecks and telemetry monitoring has been done. Neurology was consulted and recommends to continue Plavix and aspirin. Refer to cardiology to consider RYAN and loop recorder as an outpatient. Patient's echocardiogram showed decreased LV function with EF of 35-40% compared to his prior echocardiogram in 2016. Patient will be referred to Dr. Dial in the outpatient where he follows. Patient was also found to have left subclavian stenosis with history of PAD and status post bilateral carotid stent placement. Next CTA showed occluded left subclavian origin with vertebral constitution. Interval bilateral carotid artery stent placement. Eccentric soft plaque/mural thrombus extends from the distal common carotid arteries to the proximal portion of stents bilaterally. There is resultant 20-30% stenosis on the right and less than 20% stenosis on the left. Mild to moderate distal IntraStent stenosis bilaterally. There is up to 30-40% stenosis on the right and nearly 30 % stenosis on the left. Widely patent bilateral vertebral arteries. Vascular surgery was consulted. They recommend medical management aspirin, statin, no BP to the left arm. Recommend to follow-up with a pediatric nephrologist who placed his stents. Patient has been ambulating the hallway without any deficits. Patient has met maximal benefits of hospitalization. Clinically stable for discharge. DC when schedule for Dr. camarena has been made Pt Condition on Discharge: Stable Discharge Disposition: Discharge Home Discharge Time: <= 30 minutes Discharge Instructions DIET: Follow Instructions for: Heart Healthy Diet Additional Diet Instructions: Ensure or Boosts with meals Activities you can perform: Regular-No Restrictions Activities to Avoid: Driving for 24 hrs Follow up Referrals: Cardiology - 1 Week Neurology - 2 Weeks with Tai Melendez MD PhD PCP Follow-up - 2-3 Days New Medications: Aspirin (Px Aspirin) 325 Mg Tab 325 MG PO DAILY for Blood Clot Prevention, #30 TAB Clopidogrel (Plavix) 75 Mg Tab 75 MG PO DAILY for Blood Clot Prevention, #30 TAB Continued Medications: Levothyroxine (Synthroid) 100 Mcg Tab 100 MCG PO DAILY for Thyroid, #30 TAB 0 Refills Methylprednisolone Dosepak (Medrol Dosepak) 4 Mg Dspk 6 MG PO DAILY, #1 DSPK 0 Refills Per Pharmacist direction Oxycodone-Acetaminophen (Percocet) 10-325 mg Tab 1 TAB PO Q4H PRN for PAIN, TAB 0 Refills Rocio Mckeon Jun 05, 2017 10:26
[2017-06-05 11:20] VITALS: BP 83/60; PULSE 64; RESP 16; TEMP 97.7; O2SAT 96
[2017-06-05 11:54] LABS: DRVVT 1:1 MIX ND (CORRECTED); DRVVT CONFIRM ND (NEGATIVE); HEXAGONAL PHASE CONFIRM ND (NEGATIVE)
[2017-06-05 14:17] LABS: CARDIOLIPIN IGG AB <9.4 GPL; CARDIOLIPIN IGM AB <9.4 MPL
[2017-06-06 18:24] LABS: PROTEIN C ACTIVITY 85 % (70 - 150); PROTEIN S ACTIVITY 70 % (65 - 160)
== END 2017-06-05 14:39 | disposition home or self-care (01) | DRG 65 ==
LOC: NEPC 13:47 → NEDA 15:31 → NEPFCDU 16:33 → OBSVTOIN 06-03 13:06
PROVIDERS: ADMIT Hospitalist; ATTEND Hospitalist
DX: I63.9 Cerebral infarction, unspecified (principal); G81.94 Hemiplegia, unspecified affecting left nondominant side; E44.0 Moderate protein-calorie malnutrition; I82.B12 Acute embolism and thrombosis of left subclavian vein; Z68.1 Body mass index [BMI] 19.9 or less, adult; I10 Essential (primary) hypertension; J44.9 Chronic obstructive pulmonary disease, unspecified; R47.81 Slurred speech; R20.2 Paresthesia of skin; M06.9 Rheumatoid arthritis, unspecified; E89.0 Postprocedural hypothyroidism; M19.90 Unspecified osteoarthritis, unspecified site; F17.210 Nicotine dependence, cigarettes, uncomplicated; F12.90 Cannabis use, unspecified, uncomplicated; R29.700 NIHSS score 0; Z86.73 Personal history of transient ischemic attack (TIA), and cerebral infarction without residual deficits; Z92.21 Personal history of antineoplastic chemotherapy; Z92.3 Personal history of irradiation; Z85.818 Personal history of malignant neoplasm of other sites of lip, oral cavity, and pharynx; Z91.14 Patient's other noncompliance with medication regimen; Z79.01 Long term (current) use of anticoagulants; Z85.850 Personal history of malignant neoplasm of thyroid
CPT/HCPCS: 70450; 70496; 70498; 70544; 70551; 80053; 80061; 80307; 81240; 81241; 82948; 83036; 84484; 85025; 85303; 85306; 85610; 85613; 85652; 85730; 86147; 93005; 93306; 93880; 96361; 96374; G0378; G8987-GO; G8987-GP; G8988-GO; G8988-GP; J2060; J7030; J7509; Q9967

== ENCOUNTER 2017-08-17 09:15 | Emergency (ER) | payer MEDICARE ==
[~2017-08-17] VITALS: Ht 177.8 cm; Wt 64.0 kg
[~2017-08-17 09:15] MED LIST changes: +ASA325 PO; -ASPI-146 PO; +MEDR4PAK PO; -MEDR4TAB PO
[2017-08-17 09:19] VITALS: BP 144/83; PULSE 88; RESP 19; TEMP 98.1; O2SAT 97
[2017-08-17] MEDS ORDERED: ETOMIDATE 20 MG/10 ML VIAL IV PUSH ONE (09:30)
[2017-08-17 09:32] VITALS: O2SAT 98
[2017-08-17 09:45] VITALS: O2SAT 98
--- NOTE | 2017-08-17 09:48 | RADRPT ---
EXAM DATE: 08/17/2017 9:44 AM EDT AGE/SEX: 57 years / Male INDICATIONS: Left shoulder pain, dislocation CLINICAL DATA: This is the patient's initial encounter. Patient reports that signs and symptoms have been present for 1 day and indicates a pain score of 10/10. MEDICAL/SURGICAL HISTORY: . Left rotator cuff injury, previus left shoulder dislocation . Left rotator cuff repair COMPARISON: No prior exams available for comparison. FINDINGS: Single portable view left shoulder demonstrates inferior dislocation humeral head. Anchors are noted. . No radiopaque foreign bodies seen. CONCLUSION: Inferior anterior subluxation of the shoulder. Electronically signed by: Francisco Fletcher MD 08/17/2017 9:47 AM EDT
--- NOTE | 2017-08-17 09:54 | PD ---
Physical Exam Narrative I was asked by Dr. Anand to perform procedural sedation for a shoulder reduction. Data Data Last Documented VS Vital Signs Date Time Temp Pulse Resp B/P (MAP) Pulse Ox O2 Delivery O2 Flow Rate FiO2 08/17/17 10:00 78 20 110/68 (82) 99 Nasal Cannula 2.00 08/17/17 09:19 98.1 Orders Orders Etomidate Inj (Amidate Inj) (08/17/17 09:30) Ecg Monitoring (08/17/17 09:29) Iv Access Insert/Monitor (08/17/17 09:29) Oximetry (08/17/17 09:29) Shoulder, One View (08/17/17 ) Shoulder, Limited(2vws) (08/17/17 ) Ed Discharge Order (08/17/17 10:11) MDM Supervised Visit with NANCY: No Narrative Course After the risks and benefits were discussed the following procedure was performed: MODERATE SEDATION: The patient was placed on a reproduction production manager and pulse oximetry. An ambu bag and suction was immediately available at bedside. The patient was monitored by the nurse. Oxygen saturation , heart rate and blood pressure were monitored. Procedural sedation was acheived using etomidate . The patient was observed until awake and alert. Procedural Sedation time in attendance was 15 minutes. Kathia Stevenson MD Aug 17, 2017 09:54
[2017-08-17 10:00] VITALS: BP 110/68; PULSE 78; RESP 20; O2SAT 99
--- NOTE | 2017-08-17 10:11 | PD ---
HPI Chief Complaint: Pain: Acute or Chronic Time Seen by Provider: 09:29 Travel History International Travel<30 days: No Contact w/Intl Traveler<30days: No Traveled to known affect area: No History of Present Illness HPI Patient is a 57 year old male history of left rotator cuff repair presents to the ER for evaluation of left shoulder pain and probable dislocation. Patient states about an hour prior to presentation he had reached over his head and that 's when the pain started. He endorses extreme left shoulder pain, accompanied left finger numbness and tingling, context as above. PFSH Past Medical History Hx Anticoagulant Therapy: Yes (PLAVIX) Arthritis: Yes (RHEUMATOID) Asthma: No Autoimmune Disease: Yes (RA) Blood Disorders: No Anxiety: No Depression: No Heart Rhythm Problems: No Cancer: Yes (Thyroid) Cardiovascular Problems: No High Cholesterol: No Chemotherapy: No Chest Pain: No Congestive Heart Failure: No COPD: Yes Cerebrovascular Accident: Yes (TIA) Diabetes: No Diminished Hearing: No Endocrine: Yes (Thyroid CA) Gastrointestinal Disorders: No GERD: No Glaucoma: No Genitourinary: No Headaches: No Hepatitis: No Hiatal Hernia: No Hypertension: No Immune Disorder: No Kidney Stones: No Medical other: Yes (RA) Musculoskeletal: Yes (RA) Neurologic: Yes (CVA JULY 2015) Psychiatric: No Reproductive: No Respiratory: Yes (COPD) Immunizations Current: No Migraines: No Myocardial Infarction: No Radiation Therapy: No Renal Failure: No Seizures: No Sickle Cell Disease: No Sleep Apnea: No Thyroid Disease: Yes Ulcer: No Tetanus Vaccination: Unknown Past Surgical History Abdominal Surgery: No AICD: No Appendectomy: No Arteriovenous Shunt: No Cardiac Surgery: Yes Cholecystectomy: No Ear Surgery: No Endocrine Surgery: Yes (Thyroid) Eye Surgery: Yes (Left and right cataracts) Genitourinary Surgery: No Gynecologic Surgery: No Insulin Pump: No Joint Replacement: No Neurologic Surgery: No Oral Surgery: Yes (tooth removal) Pacemaker: No Thoracic Surgery: No Other Surgery: Yes (two stent in caratoid) Social History Alcohol Use: Yes (DAILY few beers ) Tobacco Use: Yes (1 pack a day ) Substance Use: Yes (weed ) Allergies-Medications (Allergen,Severity, Reaction): Coded Allergies: Sulfa (Sulfonamide Antibiotics) (Unverified Allergy, Severe, "SKIN PROBLEM ", 08/17/17) *MDRO Multi-Drug Resistant Organism (Verified Adverse Reaction, Unknown, ) MRSA (wound & cath tip) - 2009 MRSA PCR Screens NEGATIVE - 08/07 & 08/10/2015 CLEARED BY INFECTION CONTROL Reported Meds & Prescriptions Reported Meds & Active Scripts Active Px Aspirin (Aspirin) 325 Mg Tab 325 Mg PO DAILY Plavix (Clopidogrel Bisulfate) 75 Mg Tab 75 Mg PO DAILY Reported Medrol Dosepak (Methylprednisolone) 4 Mg Dspk 6 Mg PO DAILY Per Pharmacist direction Percocet (Oxycodone-Acetaminophen) 10-325 mg Tab 1 Tab PO Q4H PRN Synthroid (Levothyroxine Sodium) 100 Mcg Tab 100 Mcg PO DAILY Review of Systems Except as stated in HPI: all other systems reviewed are Neg Physical Exam Narrative GENERAL: WD/WN in a great deal of discomfort. Obvious left shoulder dislocation. patient holding elbow for patient discomfort. SKIN: Warm and dry. HEAD: Atraumatic. Normocephalic. EYES: Pupils equal and round. No scleral icterus. No injection or drainage. ENT: No nasal bleeding or discharge. Mucous membranes pink and moist. NECK: Trachea midline. No JVD. CARDIOVASCULAR: Regular rate and rhythm. RESPIRATORY: No accessory muscle use. Clear to auscultation. Breath sounds equal bilaterally. GASTROINTESTINAL: Abdomen soft, non-tender, nondistended. Hepatic and splenic margins not palpable. MUSCULOSKELETAL: Obvious inferior left shoulder dislocation. Pulses are 2+ bilaterally equal at the radius. No bony deformity seen. No edema. Reports numbness and tingling over the left 3-5th fingers. Able to ROM all 5 fingers. Very limited exam 2/2 patient discomfort. NEUROLOGICAL: Awake and alert. No obvious cranial nerve deficits. Motor grossly within normal limits. Five out of 5 muscle strength in the arms and legs. Normal speech. PSYCHIATRIC: Appropriate mood and affect; insight and judgment normal. Data Data Last Documented VS Vital Signs Date Time Temp Pulse Resp B/P (MAP) Pulse Ox O2 Delivery O2 Flow Rate FiO2 08/17/17 10:38 89 20 138/87 (104) 96 08/17/17 10:00 Nasal Cannula 2.00 08/17/17 09:19 98.1 Orders Orders Etomidate Inj (Amidate Inj) (08/17/17 09:30) Ecg Monitoring (08/17/17 09:29) Iv Access Insert/Monitor (08/17/17 09:29) Oximetry (08/17/17 09:29) Shoulder, One View (08/17/17 ) Shoulder, Limited(2vws) (08/17/17 ) Ed Discharge Order (08/17/17 10:11) [facility] Medical Decision Making Medical Screen Exam Complete: Yes Emergency Medical Condition: Yes Differential Diagnosis Shoulder dislocation, rotator cuff tear, fracture unlikely. Narrative Course Patient roomed in the ER, xray confirms inferior shoulder dislocation. Sedated and reduced. Pain completely resolved. Post reduction exam reveals a comfortable patient in sling and swathe. PMS intact, no longer reporting numbness nor tingling and reports normal sensation over the entire arm. 5/5 distal strength. Pulses 2+ bilaterally equal. Discussed with the patient given the position of the humeral screws, i highly suspect superior rotator cuff tear and a probable need for repeat surgery. Has no current orthopedic surgeon. Referral made. Discussed sling and swath and return to ED criteria. Procedures Procedure Narrative ORTHOPEDIC REDUCTION: after informed consent, discussion of all R/B/C/A with the patient and he consented to procedural sedation and closed shoulder reduction. Consents were verbal witnessed by nursing as patient states too painful to sign. Dr. Stevenson sedating, using standard traction/countertraction method with external rotation, the shoulder was easily reduced. Diagnosis Primary Impression: Shoulder dislocation Qualified Codes: S43.005A - Unspecified dislocation of left shoulder joint, initial encounter Referrals: Pete Abrams MD Disposition: 01 DISCHARGE HOME Condition: Stable Jeffery Anand MD Aug 17, 2017 10:11
--- NOTE | 2017-08-17 10:15 | RADRPT ---
EXAM DATE: 08/17/2017 10:12 AM EDT AGE/SEX: 57 years / Male INDICATIONS: Post reduction left shoulder. CLINICAL DATA: This is the patient's initial encounter. Patient reports that signs and symptoms have been present for 1 day and indicates a pain score of 2/10. MEDICAL/SURGICAL HISTORY: None. . Rotator cuff surgery. COMPARISON: No prior exams available for comparison. FINDINGS: Left shoulder has been relocated to its anatomic position. Surgical anchors are seen along the gail l head. High riding left shoulder. Soft tissues are unremarkable. No radiopaque foreign bodies seen . CONCLUSION: Relocation of left shoulder is anatomic position. Electronically signed by: Francisco Fletcher MD 08/17/2017 10:13 AM EDT
[2017-08-17 10:38] VITALS: BP 138/87
== END 2017-08-17 10:40 | disposition home or self-care (01) ==
LOC: NEPC 09:15
DX: S43.005A Unspecified dislocation of left shoulder joint, initial encounter (principal); R20.0 Anesthesia of skin; M06.9 Rheumatoid arthritis, unspecified; J44.9 Chronic obstructive pulmonary disease, unspecified; F17.210 Nicotine dependence, cigarettes, uncomplicated; F12.90 Cannabis use, unspecified, uncomplicated; X50.1XXA Overexertion from prolonged static or awkward postures, initial encounter; Z88.2 Allergy status to sulfonamides; Z79.01 Long term (current) use of anticoagulants; Z85.850 Personal history of malignant neoplasm of thyroid
CPT/HCPCS: 23650; 29240; 73020; 73030

== ENCOUNTER 2017-09-10 07:24 | Observation (INO) ==
[2017-09-10] MEDS ORDERED: Morphine Inj 4 MG/ML Vial IV.PUSH ONE ×4 (07:49→16:15)
--- NOTE | 2017-09-10 07:55 | ED ---
HPI General Chief Complaint: Extremity Injury, Upper Stated Complaint: Shoulder injury Time Seen by Provider: 09/10/17 07:45 Source: patient Mode of arrival: ambulatory History of Present Illness HPI narrative: Patient is a 57-year-old male presenting with complaint of right elbow pain secondary a fall yesterday around 10 am. He stated that he did not come because he did not start hurting until later last night however it is difficult for him to drive during the night. He denies any head injury neck injury or LOC. He is not on anticoagulants MD complaint: injury to: right and elbow Other Extremity Injury: Right: elbow (pain and swelling) and shoulder Related Data Home Medications Medication Instructions Recorded Confirmed aspirin [Aspir-Low] 81 mg PO DAILY 09/10/17 09/10/17 clopidogrel [Plavix] 75 mg PO DAILY 09/10/17 09/10/17 methotrexate (PF) 15 mg SUB-Q QWEEK 09/10/17 09/10/17 methylprednisolone [Medrol] 8 mg PO DAILY 09/10/17 09/10/17 oxycodone-acetaminophen [Percocet] 1 tab PO Q4-6H PRN 09/10/17 09/10/17 Allergies Allergy/AdvReac Type Severity Reaction Status Date / Time Sulfa (Sulfonamide Allergy Severe "SKIN Verified 09/10/17 07:58 Antibiotics) PROBLEM" *MDRO Multi-Drug Resistant AdvReac Unknown UNKNOWN Uncoded 09/10/17 07:58 Organism [facility] Medical History Medical History Chronic rheumatic arthritis (Acute) FH: throat cancer (Acute) FHx: chemotherapy (Acute) Heart attack (Acute) Hx of radiation therapy (Acute) Stroke (Acute) Surgical History Surgical History H/O rotator cuff surgery (Acute) Stented coronary artery (Acute) Social History Social History Substance History: No History of Abuse Second Hand Smoke Exposure: Yes Smoking Status: Current every day smoker Tobacco Type: Cigarettes How Often Do You Have a Drink Containing Alcohol: 2 to 3 times a week Recent Travel in [facility] within the Last 8 Weeks: No Recent Out of Country Travel within the Last 8 Weeks: No Procedures Orthopedic Joint Reduction Shoulder: Side: left Joint Reduction Location: shoulder Analgesia: procedural sedation and other (Intrarticular Block) Local anesthetic used: lidocaine 1% Amount of anesthetic used (mL): 2 Shoulder Technique Used (if applicable): traction/counter-traction, scapula manipulation, external rotation and Aggie Post-Reduction Neuro Exam: other Procedural Sedation Indications: fracture/dislocation reduction ASA Class: ASA 3 Severe Disease Preparation: director of cardiac rehabilitation applied, pulse oximeter, capnometry used, supplemental O2 applied, suction/airway equipment at bedside and IV secured IV Propofol Dose (mgs): 30 Course Initial Documented Vital Signs Temperature 97.6 F 09/10/17 07:27 Pulse Rate 84 09/10/17 07:27 Respiratory Rate 20 09/10/17 07:27 Blood Pressure 128/86 09/10/17 07:27 Pulse Oximetry 97 09/10/17 07:27 Last Documented Vital Signs Temperature 98.8 F 09/11/17 08:00 Pulse Rate 75 09/11/17 08:00 Respiratory Rate 16 09/11/17 08:00 Blood Pressure 82/50 L 09/11/17 08:00 Pulse Oximetry 93 L 09/11/17 08:00 Critical Care Time Critical Care Time: No Medical Decision Making MDM Narrative Medical decision making narrative: Patient with anterior shoulder dislocation unable to reduce in the emergency department even with constipation and was admitted for orthopedic consultation and reduction in the OR. Lab Data Result diagrams: 09/11/17 03:25 09/11/17 03:25 Lab Results 09/10/17 09/10/17 09/11/17 Range/Units 12:25 12:25 03:25 WBC 9.5 (4.0-11.0) th/mm3 RBC 4.75 (4.50-5.90) mil/mm3 Hgb 16.2 (13.0-17.0) gm/dL Hct 47.3 (39.0-51.0) % MCV 99.6 (80.0-100.0) fL MCH 34.1 H (27.0-34.0) pg MCHC 34.3 (32.0-36.0) % RDW 14.2 (11.6-17.2) % Plt Count 263 (150-450) th/mm3 MPV 7.2 (7.0-11.0) fL Neut % (Auto) 84.2 H (16.0-70.0) % Lymph % (Auto) 8.4 L (9.0-44.0) % Darke % (Auto) 6.2 (0.0-8.0) % Eos % (Auto) 0.4 (0.0-4.0) % Baso % (Auto) 0.8 (0.0-2.0) % Neut # (Auto) 8.0 H (1.8-7.7) th/mm3 Lymph # (Auto) 0.8 L (1.0-4.8) th/mm3 Darke # (Auto) 0.6 (0.0-0.9) th/mm3 Eos # (Auto) 0.0 (0.0-0.4) th/mm3 Baso # (Auto) 0.1 (0.0-0.2) th/mm3 WBC Differential . Differential Comment Auto diff final PT 10.0 (9.8-11.6) sec INR 1.0 Ratio Sodium 140 (136-145) meq/L Potassium 4.2 (3.5-5.1) meq/L Chloride 109 H (98-107) meq/L Carbon Dioxide 24.0 (21.0-32.0) meq/L Anion Gap 7 (5-15) meq/L BUN 8 (7-18) mg/dL Creatinine 0.79 (0.60-1.30) mg/dL Estimated GFR Greater than 89 (>89) mL/min Random Glucose 89 (74-106) mg/dL Calcium 8.0 L (8.5-10.1) mg/dL Total Bilirubin (0.2-1.0) mg/dL AST (15-37) U/L ALT (12-78) U/L Alkaline Phosphatase (45-117) U/L Total Protein (6.4-8.2) g/dL Albumin (3.4-5.0) g/dL Blood Type Blood Type Recheck Antibody Screen 09/11/17 09/11/17 09/11/17 Range/Units 03:25 03:25 03:25 WBC 8.4 (4.0-11.0) th/mm3 RBC 4.65 (4.50-5.90) mil/mm3 Hgb 15.8 (13.0-17.0) gm/dL Hct 46.0 (39.0-51.0) % MCV 99.0 (80.0-100.0) fL MCH 34.0 (27.0-34.0) pg MCHC 34.4 (32.0-36.0) % RDW 14.0 (11.6-17.2) % Plt Count 265 (150-450) th/mm3 MPV 7.0 (7.0-11.0) fL Neut % (Auto) 72.6 H (16.0-70.0) % Lymph % (Auto) 13.1 (9.0-44.0) % Darke % (Auto) 10.2 H (0.0-8.0) % Eos % (Auto) 3.3 (0.0-4.0) % Baso % (Auto) 0.8 (0.0-2.0) % Neut # (Auto) 6.1 (1.8-7.7) th/mm3 Lymph # (Auto) 1.1 (1.0-4.8) th/mm3 Darke # (Auto) 0.9 (0.0-0.9) th/mm3 Eos # (Auto) 0.3 (0.0-0.4) th/mm3 Baso # (Auto) 0.1 (0.0-0.2) th/mm3 WBC Differential . Differential Comment Auto diff final PT (9.8-11.6) sec INR Ratio Sodium 138 (136-145) meq/L Potassium 3.9 (3.5-5.1) meq/L Chloride 106 (98-107) meq/L Carbon Dioxide 24.7 (21.0-32.0) meq/L Anion Gap 7 (5-15) meq/L BUN 7 (7-18) mg/dL Creatinine 0.74 (0.60-1.30) mg/dL Estimated GFR Greater than 89 (>89) mL/min Random Glucose 107 H (74-106) mg/dL Calcium 8.3 L (8.5-10.1) mg/dL Total Bilirubin 0.7 (0.2-1.0) mg/dL AST 15 (15-37) U/L ALT 17 (12-78) U/L Alkaline Phosphatase 102 (45-117) U/L Total Protein 6.0 L (6.4-8.2) g/dL Albumin 2.8 L (3.4-5.0) g/dL Blood Type O Positive Blood Type Recheck Required Antibody Screen Negative Imaging Data Radiologist's impression: Shoulder X-Ray 09/10/17 00:00 CONCLUSION: Intraoperative images. Shoulder X-Ray 09/10/17 07:49 CONCLUSION: 1. Anterior left shoulder dislocation. Discharge Plan Discharge Disposition Patient Disposition: 01 Discharge Home Discharge Condition Condition: Stable Discharge Order Discharge Orders: Discharge Order (Routine); Ordered 09/11/17 Ordered By: Zully Pompa Orthopedic Clear for Discharge (Routine); Ordered 09/11/17 Ordered By: Cass Coronado Discharge Details Anticipated Discharge Date: 09/11/17 Physicians Team ED Provider: Kyle Franklin Primary Care Provider: Primary Care Denise Jordan Attending Provider: Zully Pompa Other Providers: Cass Coronado Status ED Status: Left Department Discharge Information Discharge Date/Time: 09/10/17 18:46
[2017-09-10] MEDS ORDERED: HYDROmorphone PF Inj 1 MG/ML Ampul IV.PUSH ONE (08:28)
[2017-09-10] MEDS ORDERED: Lidocaine PF 1% Inj 30 ML Vial INFILTRATN ONE (08:28)
--- NOTE | 2017-09-10 08:28 | XR ---
EXAM DATE: 09/10/2017 8:24 AM EDT AGE/SEX: 57 years / Male INDICATIONS: Left shoulder pain after stretching. CLINICAL DATA: This is the patient's initial encounter. Patient reports that signs and symptoms have been present for 1 day and indicates a pain score of 10/10. MEDICAL/SURGICAL HISTORY: . Recent dislocation. Rotator cuff, left. COMPARISON: [facility] [place], SHOULDER [facility] (2VWS), 08/17/2017. . FINDINGS: There is inferior and anterior dislocation of the humeral head. Osseous structures appear intact with out acute bony fracture. Surgical anchors are again seen along the humeral head. Bilateral probable c arotid stents. Visualized portions of the left lung are clear. CONCLUSION: 1. Anterior left shoulder dislocation. Electronically signed by: Ezio Mora MD 09/10/2017 8:27 AM EDT
[2017-09-10] MEDS ORDERED: HYDROmorphone PF Inj 2 MG/ML Vial IV.PUSH ONE (08:45)
[2017-09-10] MEDS ORDERED: Propofol Inj 500 MG/50 ML Vial ONE (10:59)
[2017-09-10] MEDS ORDERED: Succinylcholine Inj 100 MG/5 ML Syringe IV.PUSH ONE (12:00)
[2017-09-10 12:55] LABS: Baso # (Auto) 0.1 th/mm3 (0.0-0.2); Baso % (Auto) 0.8 % (0.0-2.0); Eos % (Auto) 0.4 % (0.0-4.0); Hematocrit 47.3 % (39.0-51.0); Hemoglobin 16.2 gm/dL (13.0-17.0); Lymph # (Auto) 0.8 th/mm3 (1.0-4.8); Lymph % (Auto) 8.4 % (9.0-44.0); Mean Corpuscular HGB Conc 34.3 % (32.0-36.0); Mean Corpuscular Hemoglobin 34.1 pg (27.0-34.0); Mean Corpuscular Volume 99.6 fL (80.0-100.0); Mean Platelet Volume 7.2 fL (7.0-11.0); Mono # (Auto) 0.6 th/mm3 (0.0-0.9); Mono % (Auto) 6.2 % (0.0-8.0); Neut % (Auto) 84.2 % (16.0-70.0); Platelet Count 263 th/mm3 (150-450); Red Blood Count 4.75 mil/mm3 (4.50-5.90); Red Cell Distribution Width 14.2 % (11.6-17.2); White Blood Count 9.5 th/mm3 (4.0-11.0)
[2017-09-10 13:11] LABS: Anion Gap 7 meq/L (5-15); Blood Urea Nitrogen 8 mg/dL (7-18); Chloride 109 meq/L (98-107); Glomerular Filtration Rate Greater Than 89 mL/min (>89); Glucose,Random 89 mg/dL (74-106); Potassium 4.2 meq/L (3.5-5.1); Sodium 140 meq/L (136-145)
--- NOTE | 2017-09-10 16:05 | P.HPFP ---
History of Present Illness Primary Care Physician: No Primary Care Physician History of Present Illness: Mr. Barrientos is a 57 y/o M presenting to the ED with L shoulder pain. Patient states that this morning he was stretching with his arms extended overhead after waking up when he felt his L shoulder pop out of place. He endorses pain > 10/10 characterized as constant and sharp at the joint that radiates down his arm. He states that this is the second time this has happened since having surgery approximately 20 years ago. His fingers feel "numb and cold," but does has sensation throughout the arm. He has no other complaints at this time. 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 per patient Carotid artery stenosis "Weak Heart Muscle Causing His CVA" L subclavian artery stenosis PSHx: Carotid artery stenting L Rotator cuff repair FMHx: No reported FHMx SHx: Patient lives at home with his significant other Tobacco - 1ppd for 40 years Alcohol - 6 pack of beer "most nights"; last drink last night; no history of withdrawal Illicit - Marijuana daily, otherwise no history - Diagnosis (1) Dislocation of left shoulder joint (2) Rheumatoid arthritis (3) CVA (cerebral vascular accident) (4) Nutrition, metabolism, and development symptoms (5) DVT prophylaxis Review of Systems Constitutional: Denies chills, Denies fever(s), Denies night sweats Eyes: Denies blurry vision, Denies double vision Cardiovascular: Denies chest pain, Denies excessive sweating Respiratory: Denies cough, Denies shortness of breath Gastrointestinal: Denies abdominal pain, Denies loose stools, Denies nausea, Denies vomiting Genitourinary: Denies difficulty urinating, Denies urinary frequency Musculoskeletal: Reports joint pain, Reports stiffness Skin/Breast: Denies rash Neurologic: Denies dizziness Psychiatric: Denies anxiety, Denies confusion, Denies depression PMFSH - History History Provided By: Patient, Family Member - Medical History Medical History: Medical History (Last Updated 09/10/17 @ 07:53 by [email or web address]) Chronic rheumatic arthritis FH: throat cancer FHx: chemotherapy Heart attack Hx of radiation therapy Stroke - Surgical History Surgical History: Surgical History (Last Updated 09/10/17 @ 07:53 by [email or web address]) H/O rotator cuff surgery Stented coronary artery - Tobacco History Second Hand Smoke Exposure: Yes Tobacco Use In Past 30 Days: Yes Smoking Status: Current every day smoker Tobacco Type: Cigarettes - Alcohol History How Often Do You Have a Drink Containing Alcohol: 2 to 3 times a week - Substance Use History Substance History: No History of Abuse - Substance Use Type Marijuana Status: Active Route Used: Inhalation Frequency: daily - Travel History Recent Travel in the [place] Within the Last 8 Weeks: No Recent Travel Out of the Country Within the Last 8 Weeks: No - Immunization History Tetanus Immunization: Never Vaccinated Hx Influenza Vaccine This Season: No Medications and Allergies Allergies Allergy/AdvReac Type Severity Reaction Status Date / Time Sulfa (Sulfonamide Allergy Severe "SKIN Verified 09/10/17 07:58 Antibiotics) PROBLEM" *MDRO Multi-Drug Resistant AdvReac Unknown UNKNOWN Uncoded 09/10/17 07:58 Organism Home Medications Medication Instructions Recorded Confirmed Type aspirin [Aspir-Low] 81 mg PO DAILY 09/10/17 09/10/17 History clopidogrel [Plavix] 75 mg PO DAILY 09/10/17 09/10/17 History methotrexate (PF) 15 mg SUB-Q QWEEK 09/10/17 09/10/17 History methylprednisolone [Medrol] 8 mg PO DAILY 09/10/17 09/10/17 History oxycodone-acetaminophen [Percocet] 1 tab PO Q4-6H PRN 09/10/17 09/10/17 History Exam Vital signs: Vital Signs 09/10/17 07:27 09/10/17 07:34 09/10/17 10:39 Temperature 97.6 F Pulse Rate 84 65 Respiratory Rate 20 18 18 Blood Pressure 128/86 125/85 Pulse Oximetry 97 96 09/10/17 10:40 09/10/17 11:02 09/10/17 11:30 Temperature Pulse Rate 65 Respiratory Rate 18 16 Blood Pressure 125/71 Pulse Oximetry 97 98 09/10/17 11:49 09/10/17 13:44 Temperature Pulse Rate Respiratory Rate 18 15 Blood Pressure Pulse Oximetry Intake & Output 09/09/17 09/10/17 09/10/17 18:59 06:59 18:59 Weight 79.832 kg Narrative: GENERAL: Thin appearing male lying in bed in no acute distress. SKIN: Warm and dry. No rash. HEENT: Atraumatic, normocephalic with extraocular motions intact. No rhinorrhea. Oropharynx clear. No visible lymphadenopathy or jugulovenous distension appreciated. CARDIOVASCULAR: Regular rate and rhythm without obvious murmurs, gallops, or rubs. 2+ pulses in all four extremities. RESPIRATORY: Clear to auscultation bilaterally with no crackles, wheezes, or rhonchi. No increased work of breathing. GASTROINTESTINAL: Abdomen soft, non-tender, nondistended with positive bowel sounds. No masses appreciated. MUSCULOSKELETAL: No cyanosis or edema. No calf tenderness. Ambulating well without assistance. LUE: Left shoulder with visible dislocation as humeral head is visible as patient is thin. Patient tender to palpation along the left shoulder joint with radiation down the arm. 2+ radial pulse. Appropriate capillary refill. Hand production painter 5/5. Patient refuses to move left upper extremity due to pain. Sensation intact throughout the left upper extremity. NEURO/PSYCH: Afocal. Awake, alert, and oriented x3. Normal speech and judgement. Results - Labs Result diagrams: 09/10/17 12:25 09/10/17 12:25 Abnormal lab results 09/10/17 09/10/17 Range/Units 12:25 12:25 MCH 34.1 H (27.0-34.0) pg Neut % (Auto) 84.2 H (16.0-70.0) % Lymph % (Auto) 8.4 L (9.0-44.0) % Neut # (Auto) 8.0 H (1.8-7.7) th/mm3 Lymph # (Auto) 0.8 L (1.0-4.8) th/mm3 Chloride 109 H (98-107) meq/L Calcium 8.0 L (8.5-10.1) mg/dL Short CBC 09/10/17 Range/Units 12:25 WBC 9.5 (4.0-11.0) th/mm3 Hgb 16.2 (13.0-17.0) gm/dL Hct 47.3 (39.0-51.0) % Plt Count 263 (150-450) th/mm3 BMP 09/10/17 12:25 Sodium 140 Potassium 4.2 Chloride 109 H Carbon Dioxide 24.0 BUN 8 Creatinine 0.79 Calcium 8.0 L - Imaging Impressions Shoulder X-Ray 09/10/17 07:49 CONCLUSION: 1. Anterior left shoulder dislocation. Caprini VTE Risk Assessment Caprini VTE Risk Assessment: Moderate/High Risk (score >= 2) Caprini Risk Assessment Model: Point Value = 1 Point Value = 2 Point Value = 3 Point Value = 5 Age 41-60 Minor surgery BMI > 25 kg/m2 Swollen legs Varicose veins or History of unexplained or recurrent spontaneous Oral contraceptives or hormone replacement Sepsis (< 1 month) Serious lung disease, including pneumonia (< 1 month) Abnormal pulmonary function Acute myocardial infarction Congestive heart failure (< 1 month) History of inflammatory bowel disease Medical patient at bed rest Age 61-74 Arthroscopic surgery Major open surgery (> 45 min) Laparoscopic surgery (> 45 min) Malignancy Confined to bed (> 72 hours) Immobilizing plaster cast Central venous access Age >= 75 History of VTE Family history of VTE Factor V Leiden Prothrombin [id number] Lupus anticoagulant Anticardiolipin antibodies Elevated serum homocysteine Heparin-induced thrombocytopenia Other congenital or acquired thrombophilia Stroke (< 1 month) Elective arthroplasty Hip, pelvis, or leg fracture Acute spinal cord injury (< 1 month) Prophylaxis Regimen: Total Risk Factor Score Risk Level Prophylaxis Regimen 0-1 Low Early ambulation 2 Moderate Order ONE of the following: *Sequential Compression Device (SCD) *Heparin 5000 units SQ BID 3-4 Higher Order ONE of the following medications: *Heparin 5000 units SQ TID *Enoxaparin/Lovenox 40 mg SQ daily (WT < 150 kg, CrCl > 30 mL/min) *Enoxaparin/Lovenox 30 mg SQ daily (WT < 150 kg, CrCl > 10-29 mL/min) *Enoxaparin/Lovenox 30 mg SQ BID (WT < 150 kg, CrCl > 30 mL/min) AND/OR *Sequential Compression Device (SCD) 5 or more Highest Order ONE of the following medications: *Heparin 5000 units SQ TID (Preferred with Epidurals) *Enoxaparin/Lovenox 40 mg SQ daily (WT < 150 kg, CrCl > 30 mL/min) *Enoxaparin/Lovenox 30 mg SQ daily (WT < 150 kg, CrCl > 10-29 mL/min) *Enoxaparin/Lovenox 30 mg SQ BID (WT < 150 kg, CrCl > 30 mL/min) AND *Sequential Compression Device (SCD) Assessment and Plan - Assessment (1) Dislocation of left shoulder joint Code(s): S43.005A - Unspecified dislocation of left shoulder joint, initial encounter Status: Acute Plan: Patient with anterior dislocation of the left shoulder joint. Despite multiple attempts by ER staff , shoulder joint was unable to be reduced. Orthopedic surgery (Dr. Coronado) was called and recommended patient be placed n.p.o. for reduction under anesthesia versus surgical intervention for later today per ED staff. -Left shoulder x-ray: Anterior left dislocation -Coagulation studies and type and screen ordered for possible procedure -Orthopedic surgery consulted, appreciate recommendations -Patient to be n.p.o. until evaluation Medications: -D5 half-normal saline at 120 mL/h (maintenance fluids) as patient is NPO -Morphine as needed for pain -Constipation protocol (2) Rheumatoid arthritis Code(s): M06.9 - Rheumatoid arthritis, unspecified Status: Acute Plan: Patient with history of rheumatoid arthritis -Continue home methylprednisolone -Hold home oxycodone and methotrexate -Morphine as needed for pain (3) CVA (cerebral vascular accident) Code(s): I63.9 - Cerebral infarction, unspecified Status: Acute Plan: Patient with history of 2 cerebrovascular accidents without residual deficits per patient -Hold home aspirin and Plavix for possible procedure (4) Nutrition, metabolism, and development symptoms Code(s): R63.8 - Other symptoms and signs concerning food and fluid intake Status: Acute Plan: -Fluids: D5 half-normal saline at 120 mL/h (maintenance fluids) -Diet: N.p.o. for possible orthopedic procedure -Electrolytes: Within normal limits, continue to monitor -Prophylaxis: Clonidine as needed for blood pressure >180/110, Zofran as needed for nausea/vomiting Tylenol as needed for fever, morphine as needed for pain, constipation protocol, calcium carbonate for reflux -Consider PT/OT post procedure -Incentive spirometry (5) DVT prophylaxis Status: Acute Plan: -SCDs -Hold pharmacologic DVT prophylaxis for possible procedure (1) Dislocation of left shoulder joint Qualifiers: Encounter type: initial encounter Qualified Code(s): S43.005A - Unspecified dislocation of left shoulder joint, initial encounter (2) Rheumatoid arthritis Qualifiers: Rheumatoid arthritis location: unspecified site Rheumatoid factor presence: with rheumatoid factor Qualified Code(s): M05.9 - Rheumatoid arthritis with rheumatoid factor, unspecified (3) CVA (cerebral vascular accident) Qualifiers: Laterality of affected vessel: unspecified
[2017-09-10] MEDS ORDERED: Acetaminophen 325 MG Tablet PO PRN (18:03)
[2017-09-10] MEDS ORDERED: Bisacodyl 10 MG Supp RECTAL PRN (18:03)
[2017-09-10] MEDS ORDERED: Senna/Docusate Sodium 8.6/50 MG Tablet PO PRN (18:03)
[2017-09-10] MEDS ORDERED: Naloxone Inj 0.4 MG/ML Vial IV.PUSH PRN (18:09)
[2017-09-10] MEDS ORDERED: Morphine Inj 4 MG/ML Vial IV.PUSH PRN (18:09)
[2017-09-10] MEDS: Morphine Inj 4 MG/ML Vial IV.PUSH PRN ×2 (18:37→20:24)
[2017-09-10] MEDS: KCL 20 mEq/D5W/NaCl 0.45% Inj 1,000 ML IV.CONT SCH (19:29)
[2017-09-10] MEDS ORDERED: LORazepam 1 MG Tablet PO PRN (20:30)
[2017-09-10] MEDS ORDERED: Haloperidol Inj 5 MG/ML Ampul IV.PUSH PRN (20:30)
[2017-09-10] MEDS ORDERED: Post-op Orders (for Pharmacy) OTHER STA (22:20)
--- NOTE | 2017-09-10 22:20 | P.BOP ---
Date of procedure: 09/10/17 Procedure: Closed reduction left shoulder dislocation Implants: none Anesthesia: GETA Surgeon: Cass Coronado MD Estimated blood loss (mL): 0 Pathology: none sent Condition: stable Disposition: PACU
[2017-09-10] MEDS ORDERED: fentaNYL Citrate Inj 100 MCG/2 ML Ampul ONE (22:44)
--- NOTE | 2017-09-10 22:56 | XR ---
EXAM DATE: 09/10/2017 10:46 PM EDT AGE/SEX: 57 years / Male INDICATIONS: Post reduction left shoulder dislocation CLINICAL DATA: This is the patient's initial encounter. Patient reports that signs and symptoms have been present for 1 day and indicates a pain score of Nonresponsive. MEDICAL/SURGICAL HISTORY: None. . Rotator cuff repair COMPARISON: No prior exams available for comparison. FINDINGS: 3 images of the shoulder are recorded digitally in the operating room using C-arm. CONCLUSION: Intraoperative images. Electronically signed by: Amador Tapia MD 09/10/2017 10:55 PM EDT
[2017-09-11 03:57] LABS: Baso # (Auto) 0.1 th/mm3 (0.0-0.2); Baso % (Auto) 0.8 % (0.0-2.0); Eos # (Auto) 0.3 th/mm3 (0.0-0.4); Eos % (Auto) 3.3 % (0.0-4.0); Hemoglobin 15.8 gm/dL (13.0-17.0); Lymph # (Auto) 1.1 th/mm3 (1.0-4.8); Lymph % (Auto) 13.1 % (9.0-44.0); Mean Corpuscular HGB Conc 34.4 % (32.0-36.0); Mono # (Auto) 0.9 th/mm3 (0.0-0.9); Mono % (Auto) 10.2 % (0.0-8.0); Neut # (Auto) 6.1 th/mm3 (1.8-7.7); Neut % (Auto) 72.6 % (16.0-70.0); Platelet Count 265 th/mm3 (150-450); Red Blood Count 4.65 mil/mm3 (4.50-5.90); White Blood Count 8.4 th/mm3 (4.0-11.0)
[2017-09-11 04:20] LABS: Alanine Aminotransferase 17 U/L (12-78); Albumin 2.8 g/dL (3.4-5.0); Anion Gap 7 meq/L (5-15); Aspartate Aminotransferase 15 U/L (15-37); Blood Urea Nitrogen 7 mg/dL (7-18); Calcium 8.3 mg/dL (8.5-10.1); Carbon Dioxide 24.7 meq/L (21.0-32.0); Chloride 106 meq/L (98-107); Glomerular Filtration Rate Greater Than 89 mL/min (>89); Glucose,Random 107 mg/dL (74-106); Potassium 3.9 meq/L (3.5-5.1); Sodium 138 meq/L (136-145)
[2017-09-11 04:23] LABS: Alkaline Phosphatase 102 U/L (45-117)
[2017-09-11] MEDS: KCL 20 mEq/D5W/NaCl 0.45% Inj 1,000 ML IV.CONT SCH (05:19)
--- NOTE | 2017-09-11 07:51 | P.CONOP ---
[facility] Orthopedics Consult Note - [facility] Consult date: 09/10/17 Consult reason: joint pain Chief complaint: left anterior shoulder dislocation Narrative: Mr. Barrientos is a 57 y/o M presenting to the ED with L shoulder pain. Patient states that this morning he was stretching with his arms extended overhead after waking up when he felt his L shoulder pop out of place. He endorses pain > 10/10 characterized as constant and sharp at the joint that radiates down his arm. He states that this is the second time this has happened since having surgery approximately 20 years ago. His last dislocation was at the end of July at which time he underwent a closed reduction at [facility] and was referred to Dr. Abrams for follow-up. Patient states he missed his follow-up. His fingers feel "numb and cold," but does has sensation throughout the arm. He has no other complaints at this time. Review of Systems Denies fevers, chills, nausea, blurry vision, vomiting, throat pain, abdominal or chest pain, cough, difficulty with urination, weakness, anxiety, rash. Reports left shoulder pain along with some numbness and tingling in the left arm. PMFSH - History History Provided By: Patient, Family Member - Medical History Medical History: Medical History (Last Updated 09/10/17 @ 07:53 by Gi Fuchs) Chronic rheumatic arthritis FH: throat cancer FHx: chemotherapy Heart attack Hx of radiation therapy Stroke - Surgical History Surgical History: Surgical History (Last Updated 09/10/17 @ 07:53 by Gi Fuchs) H/O rotator cuff surgery Stented coronary artery - Tobacco History Second Hand Smoke Exposure: Yes Tobacco Use In Past 30 Days: Yes Smoking Status: Current every day smoker Tobacco Type: Cigarettes - Alcohol History How Often Do You Have a Drink Containing Alcohol: 2 to 3 times a week - Substance Use History Substance History: No History of Abuse - Substance Use Type Marijuana Status: Active Route Used: Inhalation Frequency: daily - Travel History Recent Travel in the [place] Within the Last 8 Weeks: No Recent Travel Out of the Country Within the Last 8 Weeks: No - Immunization History Tetanus Immunization: Never Vaccinated Hx Influenza Vaccine This Season: No Medications and Allergies Active Medications: Active Medications Acetaminophen (Tylenol) 650 mg PO Q4H PRN PRN Reason: Temp > 100.4 Al Hydroxide/Mg Hydroxide (Milk Of Magnesia Liq) 30 ml PO Q12H PRN PRN Reason: Mild Constipation Aspirin (Ecotrin) 81 mg PO DAILY [facility] Bisacodyl (Dulcolax Supp) 10 mg RECTAL DAILY PRN PRN Reason: SEVERE CONSITIPATION Clopidogrel Bisulfate (Plavix) 75 mg PO DAILY [facility] Diphenhydramine HCl (Benadryl) 25 mg PO Q6H PRN PRN Reason: ITCHING Flumazenil (Romazecon Inj) 0.2 mg IV.PUSH Q1M PRN PRN Reason: OVERSEDATION Haloperidol Lactate (Haldol Inj) 1 mg IV.PUSH Q15M PRN PRN Reason: for severe agitation Potassium Chloride/Dextrose/Sod Cl (D5w/1/2ns + Kcl 20 Meq Inj) 1,000 mls @ 120 mls/hr IV.CONT .Q8H20M [facility] Last Admin: 09/11/17 05:19 Dose: 120 mls/hr Lorazepam (Ativan) 1 mg PO Q4H PRN PRN Reason: for CIWA 8-10 Lorazepam (Ativan) 2 mg PO Q2H PRN PRN Reason: for CIWA 11-14 Lorazepam (Ativan Inj) 2 mg IV.PUSH Q2H PRN PRN Reason: for CIWA 11-14 Lorazepam (Ativan Inj) 2 mg IV.PUSH Q1H PRN PRN Reason: for CIWA 15-20 Lorazepam (Ativan Inj) 2 mg IV.PUSH Q15M PRN PRN Reason: for CIWA > 20 Lorazepam (Ativan Inj) 1 mg IV.PUSH Q4H PRN PRN Reason: for CIWA 8-10 Methylprednisolone (Medrol) 8 mg PO DAILY [facility] Miscellaneous Information (Mis Nursing Information) 1 each OTHER UNSCH PRN PRN Reason: SEE LABEL COMMENTS Stop: 09/11/17 22:29 Morphine Sulfate (Morphine Inj) 2 mg IV.PUSH Q3H PRN PRN Reason: PAIN 3-5; IF UABLE TO TAKE PO Morphine Sulfate (Morphine Inj) 4 mg IV.PUSH Q3H PRN PRN Reason: PAIN 6-10;IF UNABLE TO TAKE PO Last Admin: 09/10/17 20:24 Dose: 4 mg Naloxone HCl (Narcan Inj) 0.4 mg IV.PUSH UNSCH PRN PRN Reason: SEE LABEL COMMENTS Ondansetron HCl (Zofran Odt) 4 mg PO Q6H PRN PRN Reason: NAUSEA OR VOMITING Ondansetron HCl (Zofran Inj) 4 mg IV.PUSH Q6H PRN PRN Reason: NAUSEA Senna/Docusate Sodium (Simona-Colace) 1 tab PO BID PRN PRN Reason: severe constipation Sennosides (Senokot) 17.2 mg PO Q12H PRN PRN Reason: Moderate Constipation Sodium Chloride (Ns Flush) 2 ml IV.FLUSH BID RADHA Sodium Chloride (Ns Flush) 2 ml IV.FLUSH PRN PRN PRN Reason: FLUSH AFTER USING IV ACCESS Allergies Allergy/AdvReac Type Severity Reaction Status Date / Time Sulfa (Sulfonamide Allergy Severe "SKIN Verified 09/10/17 07:58 Antibiotics) PROBLEM" *MDRO Multi-Drug Resistant AdvReac Unknown UNKNOWN Uncoded 09/10/17 07:58 Organism Home Medications Medication Instructions Recorded Confirmed Type aspirin [Aspir-Low] 81 mg PO DAILY 09/10/17 09/10/17 History clopidogrel [Plavix] 75 mg PO DAILY 09/10/17 09/10/17 History methotrexate (PF) 15 mg SUB-Q QWEEK 09/10/17 09/10/17 History methylprednisolone [Medrol] 8 mg PO DAILY 09/10/17 09/10/17 History oxycodone-acetaminophen [Percocet] 1 tab PO Q4-6H PRN 09/10/17 09/10/17 History Exam Vital signs: Vital Signs 09/10/17 10:39 09/10/17 10:40 09/10/17 11:02 Temperature Pulse Rate Respiratory Rate 18 18 Blood Pressure Pulse Oximetry 97 09/10/17 11:30 09/10/17 11:49 09/10/17 13:44 Temperature Pulse Rate 65 Respiratory Rate 16 18 15 Blood Pressure 125/71 Pulse Oximetry 98 09/10/17 15:56 09/10/17 19:19 09/10/17 22:30 Temperature 98.2 F 98.7 F Pulse Rate 73 62 67 Respiratory Rate 18 17 20 Blood Pressure 147/85 H 120/69 110/72 Pulse Oximetry 96 95 100 09/10/17 22:45 09/10/17 23:00 09/10/17 23:15 Temperature Pulse Rate 67 65 64 Respiratory Rate 20 16 16 Blood Pressure 110/72 109/71 111/74 Pulse Oximetry 100 100 100 09/10/17 23:30 09/11/17 00:00 09/11/17 03:26 Temperature 98.1 F 98.5 F 98.5 F Pulse Rate 64 66 68 Respiratory Rate 20 17 17 Blood Pressure 110/74 108/63 95/55 L Pulse Oximetry 100 95 93 L Intake & Output 09/10/17 09/11/17 09/11/17 18:59 06:59 18:59 Intake Total 1350 / 1350 Output Total 750 / 750 800 / 800 200 / 200 Balance -750 / -750 550 / 550 -200 / -200 Weight 79.832 kg Intake: IV 1000 / 1000 D5W/1/2NS + KCL 20 mEq Inj 1, 1000 / 1000 000 ML @ 120 mls/hr IV.CONT . Q8H20M RADHA Rx#:[id number] Oral 0 / 0 Anesthesia Amount 350 / 350 Output: Urine 750 / 750 800 / 800 200 / 200 Other: # Voids 3 Narrative: Patient awake, alert, in no acute distress. Patient continues to complain of left shoulder pain. Normocephalic Pupils equal No JVD Robert Lynne memories Nonlabored respirations Regular rate Soft nontender abdomen Left upper extremity: Visible prominence over anterior aspect of the shoulder. Patient will not allow any range of motion of the upper extremity due to discomfort. Patient does wiggle fingers but will not cooperate with full neuro exam. Radial pulses palpable. Right upper extremity and bilateral lower extremity: No visible deformities or tenderness palpation. Patient will call her with full neuro exam due to complaints of left shoulder pain. He does appear grossly intact throughout. Sensation appears intact. Brisk cap refill. No rash Normal affect Results - Labs Result Diagrams: 09/11/17 03:25 09/11/17 03:25 Labs: Laboratory Results - last 24 hr 09/10/17 09/10/17 09/11/17 12:25 12:25 03:25 WBC 9.5 RBC 4.75 Hgb 16.2 Hct 47.3 MCV 99.6 MCH 34.1 H MCHC 34.3 RDW 14.2 Plt Count 263 MPV 7.2 Neut % (Auto) 84.2 H Lymph % (Auto) 8.4 L [place] % (Auto) 6.2 Eos % (Auto) 0.4 Baso % (Auto) 0.8 Neut # (Auto) 8.0 H Lymph # (Auto) 0.8 L [place] # (Auto) 0.6 Eos # (Auto) 0.0 Baso # (Auto) 0.1 WBC Differential . Differential Comment Auto diff final PT 10.0 INR 1.0 Sodium 140 Potassium 4.2 Chloride 109 H Carbon Dioxide 24.0 Anion Gap 7 BUN 8 Creatinine 0.79 Estimated GFR Greater than 89 Random Glucose 89 Calcium 8.0 L Total Bilirubin AST ALT Alkaline Phosphatase Total Protein Albumin Blood Type Blood Type Recheck Antibody Screen 09/11/17 09/11/17 09/11/17 03:25 03:25 03:25 WBC 8.4 RBC 4.65 Hgb 15.8 Hct 46.0 MCV 99.0 MCH 34.0 MCHC 34.4 RDW 14.0 Plt Count 265 MPV 7.0 Neut % (Auto) 72.6 H Lymph % (Auto) 13.1 [place] % (Auto) 10.2 H Eos % (Auto) 3.3 Baso % (Auto) 0.8 Neut # (Auto) 6.1 Lymph # (Auto) 1.1 [place] # (Auto) 0.9 Eos # (Auto) 0.3 Baso # (Auto) 0.1 WBC Differential . Differential Comment Auto diff final PT INR Sodium 138 Potassium 3.9 Chloride 106 Carbon Dioxide 24.7 Anion Gap 7 BUN 7 Creatinine 0.74 Estimated GFR Greater than 89 Random Glucose 107 H Calcium 8.3 L Total Bilirubin 0.7 AST 15 ALT 17 Alkaline Phosphatase 102 Total Protein 6.0 L Albumin 2.8 L Blood Type O Positive Blood Type Recheck Required Antibody Screen Negative - Diagnostic results Imaging: Shoulder X-Ray 09/10/17 07:49 CONCLUSION: 1. Anterior left shoulder dislocation. Radiographs reviewed by myself and agree with the radiologist. Patient does have anterior left shoulder dislocation with previous surgical anchors at the site Assessment and Plan - Assessment and Plan 57-year-old gentleman with recurrent left anterior shoulder dislocation Diagnoses and options of management were discussed with the patient. Given his dislocation was unable to be closed reduced in the emergency department, I recommended operative intervention in the form of closed versus open reduction of his left shoulder dislocation. Risks of surgery including but not limited to : Infection, recurrent instability with future dislocation, neurovascular injury , possible need for further surgery, and other unforeseen complications were all discussed with the patient. At this time he has agreed to the above- mentioned procedure. Patient is nothing by mouth for surgery.
--- NOTE | 2017-09-11 09:37 | P.PNFP ---
Subjective Interval history: This progress note is written in conjunction with resident H&P dated 09/10/2017. Jeffery Barrientos is a 57 yo gentleman Overnight, he underwent closed reduction by Dr Coronado in the PACU, with sedation. This morning, he reports his pain is controlled. he has some tingling at the tips of his left fingers. He is wearing his sling and understands that he needs to wear it at all times for 3 weeks. ROS: + left shoulder pain, improved. No nausea/vomiting from anesthesia. All other systems reviewed are negative. 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 Left rotator cuff repair. Receives disability. 40 pack year tobacco history. + alcohol abuse - 6 beers per night. Smokes marijuana daily. Results - Labs Result diagrams: 09/11/17 03:25 09/11/17 03:25 Abnormal lab results 09/10/17 09/10/17 09/11/17 Range/Units 12:25 12:25 03:25 MCH 34.1 H (27.0-34.0) pg Neut % (Auto) 84.2 H 72.6 H (16.0-70.0) % Lymph % (Auto) 8.4 L (9.0-44.0) % Holt % (Auto) 10.2 H (0.0-8.0) % Neut # (Auto) 8.0 H (1.8-7.7) th/mm3 Lymph # (Auto) 0.8 L (1.0-4.8) th/mm3 Chloride 109 H (98-107) meq/L Random Glucose (74-106) mg/dL Calcium 8.0 L (8.5-10.1) mg/dL Total Protein (6.4-8.2) g/dL Albumin (3.4-5.0) g/dL 09/11/17 Range/Units 03:25 MCH (27.0-34.0) pg Neut % (Auto) (16.0-70.0) % Lymph % (Auto) (9.0-44.0) % Holt % (Auto) (0.0-8.0) % Neut # (Auto) (1.8-7.7) th/mm3 Lymph # (Auto) (1.0-4.8) th/mm3 Chloride (98-107) meq/L Random Glucose 107 H (74-106) mg/dL Calcium 8.3 L (8.5-10.1) mg/dL Total Protein 6.0 L (6.4-8.2) g/dL Albumin 2.8 L (3.4-5.0) g/dL Short CBC 09/10/17 09/11/17 Range/Units 12:25 03:25 WBC 9.5 8.4 (4.0-11.0) th/mm3 Hgb 16.2 15.8 (13.0-17.0) gm/dL Hct 47.3 46.0 (39.0-51.0) % Plt Count 263 265 (150-450) th/mm3 BMP 09/10/17 09/11/17 12:25 03:25 Sodium 140 138 Potassium 4.2 3.9 Chloride 109 H 106 Carbon Dioxide 24.0 24.7 BUN 8 7 Creatinine 0.79 0.74 Calcium 8.0 L 8.3 L Liver Function 09/11/17 Range/Units 03:25 Total Bilirubin 0.7 (0.2-1.0) mg/dL AST 15 (15-37) U/L ALT 17 (12-78) U/L Alkaline Phosphatase 102 (45-117) U/L Albumin 2.8 L (3.4-5.0) g/dL - Imaging Impressions Shoulder X-Ray 09/10/17 00:00 CONCLUSION: Intraoperative images. Physical Exam Vital signs: Vital Signs 09/10/17 10:39 09/10/17 10:40 09/10/17 11:02 Temperature Pulse Rate Respiratory Rate 18 18 Blood Pressure Pulse Oximetry 97 09/10/17 11:30 09/10/17 11:49 09/10/17 13:44 Temperature Pulse Rate 65 Respiratory Rate 16 18 15 Blood Pressure 125/71 Pulse Oximetry 98 09/10/17 15:56 09/10/17 19:19 09/10/17 22:30 Temperature 98.2 F 98.7 F Pulse Rate 73 62 67 Respiratory Rate 18 17 20 Blood Pressure 147/85 H 120/69 110/72 Pulse Oximetry 96 95 100 09/10/17 22:45 09/10/17 23:00 09/10/17 23:15 Temperature Pulse Rate 67 65 64 Respiratory Rate 20 16 16 Blood Pressure 110/72 109/71 111/74 Pulse Oximetry 100 100 100 09/10/17 23:30 09/11/17 00:00 09/11/17 03:26 Temperature 98.1 F 98.5 F 98.5 F Pulse Rate 64 66 68 Respiratory Rate 20 17 17 Blood Pressure 110/74 108/63 95/55 L Pulse Oximetry 100 95 93 L 09/11/17 08:00 Temperature 98.8 F Pulse Rate 75 Respiratory Rate 16 Blood Pressure 82/50 L Pulse Oximetry 93 L Intake & Output 09/10/17 09/11/17 09/11/17 18:59 06:59 18:59 Intake Total 1350 / 1350 Output Total 750 / 750 800 / 800 200 / 200 Balance -750 / -750 550 / 550 -200 / -200 Weight 79.832 kg Intake: IV 1000 / 1000 D5W/1/2NS + KCL 20 mEq Inj 1, 1000 / 1000 000 ML @ 120 mls/hr IV.CONT . Q8H20M [facility] Rx#:[id number] Oral 0 / 0 Anesthesia Amount 350 / 350 Output: Urine 750 / 750 800 / 800 200 / 200 Other: # Voids 3 Narrative: Per resident H&P. Significant for: In NAD, no resp distress Accompanied by significant other. Sitting in bed, with left arm in sling. able to wiggle fingers. Sensation is grossly intact in left fingers. Assessment and Plan - Assessment (1) Dislocation of left shoulder joint Code(s): S43.005A - Unspecified dislocation of left shoulder joint, initial encounter Status: Acute Plan: Anterior dislocation of left shoulder joint, s/p closed reduction in the PACU by Dr Coronado (ortho) late last night. -Left shoulder x-ray: Anterior left dislocation Medications: -Morphine as needed for pain -Constipation protocol (2) Rheumatoid arthritis Code(s): M06.9 - Rheumatoid arthritis, unspecified Status: Chronic Plan: Patient with history of rheumatoid arthritis -Continue home methylprednisolone -Hold home oxycodone and methotrexate; can resume at discharge -Morphine as needed for pain (3) CVA (cerebral vascular accident) Code(s): I63.9 - Cerebral infarction, unspecified Status: Chronic Plan: Patient with history of 2 cerebrovascular accidents without residual deficits per patient -Held home aspirin and Plavix for possible procedure; can resume at discharge (4) CAD (coronary artery disease) Code(s): I25.10 - Atherosclerotic heart disease of [place] coronary artery without angina pectoris Status: Chronic Plan: Asymptomatic. Continue home medications at discharge. (5) Tobacco abuse Code(s): Z72.0 - Tobacco use Status: Chronic Plan: Will counseling center manager to quit smoking. (6) Alcohol abuse Code(s): F10.10 - Alcohol abuse, uncomplicated Status: Chronic Plan: Will counseling center manager to quit smoking. No sign of withdrawal. - Assessment and Plan Discharge Planning: Discharge home today, once pt tolerates breakfast - Attending Attestation Patient seen, examined, and discussed with resident team. (1) Dislocation of left shoulder joint Qualifiers: Encounter type: subsequent encounter Qualified Code(s): S43.005D - Unspecified dislocation of left shoulder joint, subsequent encounter (2) Rheumatoid arthritis Qualifiers: Rheumatoid arthritis location: unspecified site Rheumatoid factor presence: with rheumatoid factor Qualified Code(s): M05.9 - Rheumatoid arthritis with rheumatoid factor, unspecified (3) CVA (cerebral vascular accident) Qualifiers: Laterality of affected vessel: unspecified (4) CAD (coronary artery disease) Qualifiers: Coronary Disease-Associated Artery/Lesion type: [place] artery [place] vs. transplanted heart: [place] heart Associated angina: without angina Qualified Code(s): I25.10 - Atherosclerotic heart disease of [place] coronary artery without angina pectoris
--- NOTE | 2017-10-01 11:51 | P.OP ---
Date of procedure: 09/10/17 Procedure: Closed reduction left glenohumeral dislocation Implants: none Anesthesia: GETA Surgeon: Cass Coronado MD Estimated blood loss (mL): 0 Pathology: none sent Operation and Findings: Indications for procedure: Patient is a 57-year-old gentleman who presented to the emergency department with recurrent left glenohumeral dislocation. Closed reduction attempts were performed in the emergency department without success. Recommendation for surgical intervention in the form of a closed reduction versus open reduction of his left shoulder dislocation. Risks of surgery including but not limited to: Recurrent dislocation and instability, persistent shoulder pain and/or stiffness, possible need for further surgery, and other unforeseen, cages were all discussed with the patient. Description of procedure: Patient was brought back to the operating room and placed supine on operating room table with all bony prominences well-padded. Limited sedation then ensued. An attempt was made at closed reduction with traction and rotation of his left shoulder, however, this was unsuccessful. Radiographs demonstrated this remained dislocated. At this time, general anesthesia then ensued and the patient was intubated and given paralytics for muscle relaxation. With traction and countertraction along with rotation, the left glenohumeral joint was successfully closed reduced. Fluoroscopy verified this was in appropriate position. Patient was then placed into a sling and swath. Patient was awoken from general anesthesia without complication. Disposition: Nonweightbearing left upper extremity in sling. Patient was instructed to follow up in my office in 2 weeks.
== END 2017-09-11 11:48 | disposition home or self-care (01) ==
LOC: NEDA 07:24 → NEPHCDU 07:24 → NEPC 07:24 → NEPHCDU 17:38
PROVIDERS: ADMIT Family Medicine; ATTEND Family Medicine